=== PATIENT | male | born 1950 | race Caucasian/White ===

== ENCOUNTER → 2016-07-16 | Outpatient (CLI) | payer MEDICARE, BC ==
[~2016-07-16] MED LIST: ALLO300T OR; BABY81CH OR; BISO10TA2 OR; COLA100C2 OR; DIET; KEFL500C OR; LEVO75TA2 OR; LOVAZA; MULTIVIT; OMEP20TA7 OR; SOTOLOL OR; [UNRECOGNIZED DRUG - OTHER]
[2016-07-16 11:03] LABS: INR 2.55
== END ==
LOC: M LAB 10:22
PROVIDERS: ATTEND Internal Medicine Interventional Cardiology
DX: I48.0 Paroxysmal atrial fibrillation (principal)

== ENCOUNTER → 2016-08-13 | Outpatient (CLI) | payer MEDICARE, BC ==
[2016-08-13 13:42] LABS: INR 2.32
== END ==
LOC: M LAB 12:53
PROVIDERS: ATTEND Internal Medicine Interventional Cardiology
DX: I48.0 Paroxysmal atrial fibrillation (principal); Z51.81 Encounter for therapeutic drug level monitoring; Z79.01 Long term (current) use of anticoagulants

== ENCOUNTER → 2016-09-04 | Outpatient (REF) | payer MEDICARE, BC ==
[2016-09-04 13:15] LABS: PERCENT SATURATION 31.6 % (19.7-37.4)
[2016-09-04 14:06] LABS: INR 2.36
== END ==
LOC: M LAB REF 11:53
PROVIDERS: ATTEND Family Medicine
DX: K74.0 Hepatic fibrosis (principal); D64.9 Anemia, unspecified

== ENCOUNTER → 2016-09-20 | Outpatient (CLI) | payer MEDICARE, BC ==
--- NOTE | 2016-09-20 09:58 | REP ---
LIVER ULTRASOUND: 09/20/2016. Clinical history: Anemia, chronic liver disease, elevated LFTs, splenomegaly. Comparison: CT abdomen pelvis 10/20/2015, ultrasound 10/19/2014. Findings: Sonographic evaluation of the liver shows diffuse coarse echotexture throughout similar to previous studies. There is no discrete mass identified. The liver is enlarged measuring at least 19.5 cm in the midclavicular line. Main portal vein is increased in diameter at 2.3 cm. Common duct is 6.6 mm without a filling defect. The gallbladder measures at 10.2 x 4.6 x 5.2 cm. It has a wall thickness of 3 mm. No pericholecystic fluid, stones, sludge or mass. No echogenic stone or shadowing. The pancreas is limited in evaluation due to gas shadowing. Those segments seen were unremarkable. There is no ascites in the upper abdomen. The right kidney is 13.1 x 5.9 x 5.7 cm and is without hydronephrosis. Color images show a prominent recanalized umbilical vein consistent with chronic liver disease and cirrhosis. Slightly lobulated liver margins are noted particularly in the left lobe. There are no other findings. Impression: 1. Hepatomegaly with diffuse coarsened echotexture of the liver, somewhat lobulated margins, recanalization of the umbilical vein and a large main portal vein with diameter 2.3 cm. No generalized ascites. 2. Gallbladder mildly distended but without stone, mass or sludge. Wall thickness 3 mm is borderline but no pericholecystic fluid. 3. Visualized portions of pancreas intact but the gas shadowing obscures it. 4. Right kidney shows no hydronephrosis or mass. Cortical echogenicity is normal. Signed by Kahlil Faria MD 09/20/2016 10:47 A
== END ==
LOC: M RAD 08:47
PROVIDERS: ATTEND Internal Medicine Gastroenterology
DX: K74.0 Hepatic fibrosis (principal)

== ENCOUNTER → 2016-09-27 | Outpatient (CLI) | payer MEDICARE, BC ==
[2016-09-27 11:31] LABS: INR 2.94
== END ==
LOC: M LAB 10:41
PROVIDERS: ATTEND Internal Medicine Interventional Cardiology
DX: I48.0 Paroxysmal atrial fibrillation (principal)

== ENCOUNTER → 2016-10-25 | Outpatient (CLI) | payer MEDICARE, BC ==
[2016-10-25 11:11] LABS: INR 2.97
== END ==
LOC: M LAB 10:30
PROVIDERS: ATTEND Internal Medicine Interventional Cardiology
DX: I48.0 Paroxysmal atrial fibrillation (principal)

== ENCOUNTER 2016-11-11 08:27 | Emergency (ER) | payer MEDICARE, BC ==
[~2016-11-11] VITALS: Ht 188 cm; Wt 124.7 kg
[2016-11-11] MEDS ORDERED: WARF-23 PO (08:47)
[2016-11-11] MEDS ORDERED: OMEG1CAP4 PO (08:47)
[2016-11-11] MEDS ORDERED: LEVO125T3 PO (08:47)
[2016-11-11] MEDS ORDERED: METF1000 PO (08:47)
[2016-11-11 09:30] LABS: BASO % 0.6 % (0.0-1.0); EOS # 0.1 K/mm3 (0.0-0.50); EOS % 2.3 % (0.0-3.0); LARGE UNSTAINED CELL # 0.1 K/mm3 (0.0-0.4); LARGE UNSTAINED CELL % 2.6 % (0.0-4.0); LYMPH # 0.5 K/mm3 (1.5-4.5); MEAN CORPUSCULAR HEMOGLOBIN 28.5 pg (27.0-33.0); MEAN CORPUSCULAR HGB CONC 31.8 g/dl (32.0-36.5); MEAN CORPUSCULAR VOLUME 89.4 fl (80.0-96.0); MONO # 0.2 K/mm3 (0.0-0.8); MONO % 7.2 % (0.0-5.0); NEUTROPHILS # 2.4 K/mm3 (1.8-7.7); NEUTROPHILS % 72.4 % (36.0-66.0); PLATELET COUNT, AUTOMATED 100 k/mm3 (150-450); RED CELL DISTRIBUTION WIDTH 19.9 % (11.5-14.5); WHITE BLOOD COUNT 3.3 K/mm3 (4.0-10.0)
[2016-11-11 09:32] LABS: INR 3.17
[2016-11-11 09:54] LABS: ALBUMIN 3.4 GM/DL (3.2-5.2); ALBUMIN/GLOBULIN RATIO 0.92 (1.00-1.93); ALKALINE PHOSPHATASE 69 U/L (45-117); ALT/SGPT 44 U/L (12-78); ANION GAP 7 MEQ/L (8-16); AST/SGOT 62 U/L (15-37); BILIRUBIN,DIRECT 0.5 MG/DL (0.0-0.2); BILIRUBIN,TOTAL 1.2 MG/DL (0.2-1.0); BLOOD UREA NITROGEN 17 MG/DL (7-18); CALCIUM LEVEL 8.5 MG/DL (8.8-10.2); CARBON DIOXIDE LEVEL 27 MEQ/L (21-32); CHLORIDE LEVEL 108 MEQ/L (98-107); CREATININE FOR GFR 0.74 MG/DL (0.70-1.30); GLOMERULAR FILTRATION RATE > 60.0 (>49); GLUCOSE, FASTING 118 MG/DL (80-110); POTASSIUM SERUM 4.1 MEQ/L (3.5-5.1); SODIUM LEVEL 142 MEQ/L (136-145); TOTAL PROTEIN 7.1 GM/DL (6.4-8.2)
[2016-11-11] MEDS ORDERED: ASPIRIN 325 MG TAB PO ONE (11:45)
--- NOTE | 2016-11-11 12:09 | REP ---
CHEST, TWO VIEWS: HISTORY: Dyspnea. COMPARISON: 07/22/2015 Dual chamber bipolar pacemaker device, status quo. Cardiomegaly, status quo. Lung singh clear. Pleural angles are sharp. No change in the osseous structures. IMPRESSION: Chronic changes as described above without evidence of acute cardiopulmonary disease. Signed by Luis A Sutherland DO 11/11/2016 01:32 P
--- NOTE | 2016-11-11 14:50 | ECGEPIP ---
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
--- NOTE | 2016-11-11 14:51 | ECGEPIP ---
Stationary ECG Study 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
[2016-11-11] MEDS ORDERED: VALA1TAB PO (15:32)
[2016-11-11 15:46] VITALS: BP 131/74
== END 2016-11-11 16:05 | disposition home or self-care (01) ==
LOC: M ED 09:42
DX: R07.9 Chest pain, unspecified (principal); R06.02 Shortness of breath; B02.9 Zoster without complications; I51.7 Cardiomegaly; I25.10 Atherosclerotic heart disease of native coronary artery without angina pectoris; I25.2 Old myocardial infarction; Z87.442 Personal history of urinary calculi; Z95.0 Presence of cardiac pacemaker; Z95.5 Presence of coronary angioplasty implant and graft; Z79.01 Long term (current) use of anticoagulants; Z79.899 Other long term (current) drug therapy; Z79.82 Long term (current) use of aspirin; Z79.84 Long term (current) use of oral hypoglycemic drugs; Z91.041 Radiographic dye allergy status; Z87.891 Personal history of nicotine dependence

== ENCOUNTER → 2016-11-23 | Outpatient (CLI) | payer MEDICARE, BC ==
[~2016-11-23] MED LIST changes: +LEVO125T3 PO; +METF1000 PO; +OMEG1CAP4 PO; +VALA1TAB PO; +WARF-23 PO
[2016-11-23 13:49] LABS: INR 2.61
== END ==
LOC: M LAB 12:53
PROVIDERS: ATTEND Internal Medicine Interventional Cardiology
DX: I48.0 Paroxysmal atrial fibrillation (principal)

== ENCOUNTER → 2016-12-24 | Outpatient (CLI) | payer MEDICARE, BC ==
[2016-12-24 10:52] LABS: INR 2.56
== END ==
LOC: M LAB 09:34
PROVIDERS: ATTEND Internal Medicine Interventional Cardiology
DX: I48.91 Unspecified atrial fibrillation (principal)

== ENCOUNTER → 2017-01-24 | Outpatient (CLI) | payer MEDICARE, BC ==
[~2017-01-24] MED LIST changes: +CLEO300C2 PO; -LEVO125T3 PO; +LEVO125T4 PO; -METF1000 PO; +METF10004 PO; +TYLETAB14 PO; -VALA1TAB PO; +VALA1TAB2 PO
[2017-01-24 11:38] LABS: INR 2.52
== END ==
LOC: M LAB 10:34
PROVIDERS: ATTEND Internal Medicine Interventional Cardiology
DX: I48.91 Unspecified atrial fibrillation (principal)

== ENCOUNTER → 2017-01-28 | Outpatient (REF) | payer MEDICARE, BC | LOC: M LAB REF 14:07 | PROVIDERS: ATTEND Family Medicine | DX: Z87.442 Personal history of urinary calculi (principal) ==

== ENCOUNTER → 2017-01-30 | Outpatient (REF) | payer MEDICARE, BC | LOC: M LAB REF 13:25 | PROVIDERS: ATTEND Family Medicine | DX: R06.02 Shortness of breath (principal) ==

== ENCOUNTER → 2017-02-01 | Outpatient (CLI) | payer MEDICARE, BC ==
--- NOTE | 2017-02-01 11:39 | REP ---
CHEST, TWO VIEWS: Two views of the chest are performed and compared to prior study of 11/11/2016. There is again mild cardiomegaly. There is no acute infiltrate. There is mild elevation of the left hemidiaphragm unchanged. There is mild calcification of the thoracic aorta. The mediastinal silhouette is unchanged. Left dual lead pacemaker noted. There are degenerative changes of the spine. IMPRESSION: Mild cardiomegaly. No acute infiltrate. Signed by Titi Ledbetter MD 02/01/2017 03:28 P
== END ==
LOC: M RAD 10:12
PROVIDERS: ATTEND Family Medicine
DX: R06.02 Shortness of breath (principal)

== ENCOUNTER → 2017-02-22 | Outpatient (CLI) | payer MEDICARE, BC ==
[2017-02-22 11:15] LABS: INR 2.83
== END ==
LOC: M LAB 10:34
PROVIDERS: ATTEND Internal Medicine Interventional Cardiology
DX: I48.91 Unspecified atrial fibrillation (principal)

== ENCOUNTER → 2017-03-18 | Outpatient (CLI) | payer MEDICARE, BC ==
[2017-03-18 10:30] LABS: ALBUMIN 3.6 GM/DL (3.2-5.2); ALBUMIN/GLOBULIN RATIO 1.06 (1.00-1.93); ALKALINE PHOSPHATASE 71 U/L (45-117); ALT/SGPT 36 U/L (12-78); ANION GAP 5 MEQ/L (8-16); AST/SGOT 55 U/L (15-37); BILIRUBIN,TOTAL 1.1 MG/DL (0.2-1.0); BLOOD UREA NITROGEN 18 MG/DL (7-18); CALCIUM LEVEL 8.7 MG/DL (8.8-10.2); CARBON DIOXIDE LEVEL 29 MEQ/L (21-32); CHLORIDE LEVEL 108 MEQ/L (98-107); CREATININE FOR GFR 0.62 MG/DL (0.70-1.30); GLOMERULAR FILTRATION RATE > 60.0 (>49); GLUCOSE, FASTING 101 MG/DL (80-110); SODIUM LEVEL 142 MEQ/L (136-145)
[2017-03-18 10:39] LABS: MEAN CORPUSCULAR HEMOGLOBIN 28.8 pg (27.0-33.0); MEAN CORPUSCULAR HGB CONC 32.5 g/dl (32.0-36.5); MEAN CORPUSCULAR VOLUME 88.6 fl (80.0-96.0); RED CELL DISTRIBUTION WIDTH 19.3 % (11.5-14.5); WHITE BLOOD COUNT 3.9 K/mm3 (4.0-10.0)
[2017-03-18 10:45] LABS: INR 3.04
== END ==
LOC: M LAB 09:15
PROVIDERS: ATTEND Internal Medicine Gastroenterology
DX: K74.0 Hepatic fibrosis (principal)

== ENCOUNTER 2017-03-23 13:09 | Emergency (ER) | payer MEDICARE, BC ==
[~2017-03-23] VITALS: Ht 182.9 cm; Wt 72.7 kg
[~2017-03-23 13:09] MED LIST changes: -CLEO300C2 PO; -TYLETAB14 PO
[2017-03-23 13:10] VITALS: BP 137/89
[2017-03-23] MEDS ORDERED: CLEO300C2 PO (14:36)
[2017-03-23] MEDS ORDERED: TYLETAB14 PO (14:36)
== END 2017-03-23 14:44 | disposition home or self-care (01) ==
LOC: M ED 13:09
DX: L03.317 Cellulitis of buttock (principal); I25.10 Atherosclerotic heart disease of native coronary artery without angina pectoris; I50.9 Heart failure, unspecified; E11.9 Type 2 diabetes mellitus without complications; E07.9 Disorder of thyroid, unspecified; E66.9 Obesity, unspecified; I25.2 Old myocardial infarction; Z79.899 Other long term (current) drug therapy; Z79.84 Long term (current) use of oral hypoglycemic drugs; Z79.01 Long term (current) use of anticoagulants; Z79.82 Long term (current) use of aspirin; Z91.041 Radiographic dye allergy status; Z87.891 Personal history of nicotine dependence

== ENCOUNTER → 2017-04-03 | Outpatient (CLI) | payer MEDICARE, BC ==
[~2017-04-03] MED LIST changes: +CLEO300C2 PO; +TYLETAB14 PO
--- NOTE | 2017-04-03 09:49 | REP ---
RIGHT UPPER QUADRANT ULTRASOUND: Real-time sonographic evaluation of the right upper quadrant performed and compared to prior study of 09/20/2016. The gallbladder demonstrates no evidence of intraluminal sludge or calculi and no wall thickening. Minimal free fluid is seen adjacent to the gallbladder. There is no intrahepatic or extrahepatic biliary dilatation, common bile duct measuring 3 mm in diameter. Liver is upper limits of normal in size at 15 cm in length at the midclavicular line. There is diffuse heterogeneous echotexture in the liver without evidence of a mass. The main portal vein is dilated up to 21 mm with a velocity of 40.6 cm/s with duplex Doppler evaluation. Umbilical vein is recanalized. Findings are consistent with portal hypertension then cirrhosis. Visualized pancreas is grossly unremarkable but not optimally seen due to overlying bowel gas. Right kidney demonstrates no hydronephrosis or nephrolithiasis with normal size at 13.6 cm in length. IMPRESSION: Tiny amount of free fluid adjacent to the gallbladder. No gallstones. No biliary dilatation. Heterogeneous echotexture of the liver without a definite mass compatible with cirrhosis. Dilated portal vein and recanalized umbilical vein consistent with portal hypertension. Signed by Titi Ledbetter MD 04/03/2017 05:02 P
== END ==
LOC: M RAD 08:35
PROVIDERS: ATTEND Internal Medicine Gastroenterology
DX: R74.8 Abnormal levels of other serum enzymes (principal)

== ENCOUNTER → 2017-04-15 | Outpatient (CLI) | payer MEDICARE, BC ==
[2017-04-15 10:03] LABS: INR 2.65
== END ==
LOC: M LAB 09:03
PROVIDERS: ATTEND Internal Medicine Interventional Cardiology
DX: I48.91 Unspecified atrial fibrillation (principal)

== ENCOUNTER → 2017-06-10 | Outpatient (CLI) | payer MEDICARE, BC ==
[2017-06-10 12:55] LABS: INR 2.49
== END ==
LOC: M LAB 12:12
PROVIDERS: ATTEND Internal Medicine Interventional Cardiology
DX: I48.91 Unspecified atrial fibrillation (principal)

== ENCOUNTER → 2017-06-11 | Outpatient (CLI) | payer MEDICARE, BC ==
[2017-06-12 14:15] LABS: PSA TOTAL 0.4 ng/mL (0.0-4.0)
== END ==
LOC: M LAB 13:33
PROVIDERS: ATTEND Urology
DX: Z12.5 Encounter for screening for malignant neoplasm of prostate (principal)

== ENCOUNTER → 2017-06-26 | Outpatient (CLI) | payer MEDICARE, BC ==
--- NOTE | 2017-06-26 20:42 | REP ---
RENAL AND BLADDER ULTRASOUND: Real-time sonographic evaluation of the kidneys performed. The kidneys appear normal in size and echotexture, right kidney measuring 12.9 x 7.0 x 5.9 cm and left kidney 12.3 x 6.1 x 6.4 cm. There is no hydronephrosis bilaterally. Tiny somewhat linear echogenicities in the kidneys bilaterally suggests intrarenal vascular calcifications. There is a 1 cm cyst in the lower pole of the left kidney. No other renal abnormalities are seen. Urinary bladder is mildly distended with no mass or calculus. IMPRESSION: No hydronephrosis. Cyst lower pole left kidney 1 cm in diameter. Tiny echogenicities in the kidneys bilaterally appears somewhat linear and suggests vascular calcifications. Signed by Titi Ledbetter MD 06/27/2017 08:31 P
== END ==
LOC: M RAD 13:14
PROVIDERS: ATTEND Urology
DX: N20.0 Calculus of kidney (principal)

== ENCOUNTER → 2017-07-15 | Outpatient (CLI) | payer MEDICARE, BC ==
[2017-07-15 10:06] LABS: INR 2.65; PROTHROMBIN TIME 29.4 SECONDS (12.4-14.5)
== END ==
LOC: M LAB 09:19
DX: I48.91 Unspecified atrial fibrillation (principal)
CPT/HCPCS: 85610

== ENCOUNTER → 2017-08-05 | Outpatient (CLI) | payer MEDICARE, BC ==
[2017-08-05 10:52] LABS: INR 2.68; PROTHROMBIN TIME 29.7 SECONDS (12.4-14.5)
== END ==
LOC: M LAB 10:04
DX: I48.91 Unspecified atrial fibrillation (principal)
CPT/HCPCS: 85610

== ENCOUNTER → 2017-08-09 | Outpatient (REF) | payer MEDICARE, BC ==
[2017-08-09 19:09] LABS: URIC ACID 3.5 MG/DL (3.5-7.2)
== END ==
LOC: M LAB REF 17:46
DX: Z87.442 Personal history of urinary calculi (principal)
CPT/HCPCS: 84550

== ENCOUNTER → 2017-09-02 | Outpatient (CLI) | payer MEDICARE, BC ==
[2017-09-02 08:45] LABS: INR 2.89; PROTHROMBIN TIME 31.5 SECONDS (12.4-14.5)
== END ==
LOC: M LAB 07:57
DX: I48.91 Unspecified atrial fibrillation (principal)
CPT/HCPCS: 85610

== ENCOUNTER → 2017-09-17 | Outpatient (REF) | payer MEDICARE, BC ==
[2017-09-17 15:03] LABS: URIC ACID 3.4 MG/DL (3.5-7.2)
[2017-09-17 15:21] LABS: VITAMIN B12 LEVEL 771 PG/ML
[2017-09-17 15:22] LABS: FOLATE 17.3 NG/ML; RETIC HEMOGLOBIN EQUIVALENT 30.9 pg (24-36); RETICULOCYTE # 63.8 10^9/L (17-77); RETICULOCYTE % 1.9 % (0.5-1.5)
[2017-09-17 15:29] LABS: REASON FOR REVIEW PLATELET MORPHOLOGY; SLIDE REVIEW Report; SOURCE PERIPHERAL SMEAR
== END ==
LOC: M LAB REF 12:59
DX: D61.818 Other pancytopenia (principal)
CPT/HCPCS: 82746

== ENCOUNTER → 2017-09-18 | Outpatient (CLI) | payer MEDICARE, BC ==
[2017-09-18 09:45] LABS: INR 1.42; PROTHROMBIN TIME 17.7 SECONDS (12.4-14.5)
== END ==
LOC: M LAB 08:36
DX: I50.20 Unspecified systolic (congestive) heart failure (principal)
CPT/HCPCS: 85610

== ENCOUNTER → 2017-09-24 | Outpatient (CLI) | payer MEDICARE, BC | LOC: M RAD 07:08 | DX: F17.210 Nicotine dependence, cigarettes, uncomplicated (principal) | CPT/HCPCS: 76700 ==

== ENCOUNTER → 2017-09-24 | Outpatient (CLI) | payer MEDICARE, BC | LOC: M RAD 07:04 | DX: R10.12 Left upper quadrant pain (principal) ==

== ENCOUNTER → 2017-09-25 | Outpatient (REF) | payer MEDICARE, BC ==
[2017-09-25 13:59] LABS: FOLATE 19.9 NG/ML
[2017-09-25 14:01] LABS: ESTIMATED AVERAGE GLUCOSE 91 MG/DL (60-110); HEMOGLOBIN A1c 4.8 %; TOTAL PROTEIN 7.6 GM/DL (6.4-8.2)
[2017-09-25 14:01] LABS: CPK CREATINE PHOSPHOKINASE 36 U/L (39-308)
[2017-09-25 14:07] LABS: VITAMIN B12 LEVEL 789 PG/ML
[2017-09-26 11:24] LABS: ALBUMIN 4.16 GM/DL (3.29-5.55); ALBUMIN % 54.8 % (55.8-66.1); ALPHA-1-GLOBULIN % 3.8 % (2.9-4.9); ALPHA-1-GLOBULINS 0.29 GM/DL (0.17-0.41); ALPHA-2-GLOBULINS 0.63 GM/DL (0.42-0.99); ALPHA-2-GLOBULINS % 8.3 % (7.1-11.8); BETA-1-GLOBULINS 0.44 GM/DL (0.28-0.60); BETA-1-GLOBULINS % 5.8 % (4.7-7.2); BETA-2-GLOBULINS 0.41 GM/DL (0.19-0.55); BETA-2-GLOBULINS % 5.4 % (3.2-6.5); GAMMA GLOBULIN % 21.9 % (11.1-18.8); GAMMA GLOBULINS 1.66 GM/DL (0.65-1.58)
[2017-10-02 00:07] LABS: ACETYLCHOLINE RCPTOR BINDING A 0.06 nmol/L (0.00-0.24)
[2017-10-02 00:07] LABS: ALDOLASE 4.5 U/L (3.3-10.3); CERULOPLASMIN 31.9 mg/dL (16.0-31.0); COPPER PLASMA 110 ug/dL (72-166); LEAD BLOOD ADULT <1 ug/dL (0-19); MERCURY LEVEL 1.5 ug/L (0.0-14.9); STRIATIONAL ANTIBODIES Negative (Neg:<1:40)
== END ==
LOC: M LABNEURO 10:30
DX: E11.40 Type 2 diabetes mellitus with diabetic neuropathy, unspecified (principal); G72.9 Myopathy, unspecified; G70.00 Myasthenia gravis without (acute) exacerbation; T56.4X2S Toxic effect of copper and its compounds, intentional self-harm, sequela; T56.0X2S Toxic effect of lead and its compounds, intentional self-harm, sequela; T56.1X2S Toxic effect of mercury and its compounds, intentional self-harm, sequela
CPT/HCPCS: 82525

== ENCOUNTER → 2017-09-26 | Outpatient (CLI) | payer MEDICARE, BC ==
[2017-09-26 15:39] LABS: HEMATOCRIT 30.8 % (42.0-52.0); HEMOGLOBIN 9.7 g/dl (14.0-18.0); MEAN CORPUSCULAR HEMOGLOBIN 27.3 pg (27.0-33.0); MEAN CORPUSCULAR HGB CONC 31.5 g/dl (32.0-36.5); MEAN CORPUSCULAR VOLUME 86.8 fl (80.0-96.0); PLATELET COUNT, AUTOMATED 113 10^3/uL (150-450); RED BLOOD COUNT 3.55 10^6/uL (4.30-6.10); RED CELL DISTRIBUTION WIDTH 20.7 % (11.5-14.5); WHITE BLOOD COUNT 3.4 10^3/uL (4.0-10.0)
[2017-09-26 15:41] LABS: POSITIVE MORPH POS FLAG; SUSPECT SAMPLE POS FLAG
[2017-09-26 15:59] LABS: INR 2.54; PROTHROMBIN TIME 28.4 SECONDS (12.4-14.5)
[2017-09-26 16:08] LABS: ALBUMIN 3.6 GM/DL (3.2-5.2); ALBUMIN/GLOBULIN RATIO 0.92 (1.00-1.93); ALKALINE PHOSPHATASE 76 U/L (45-117); ALT/SGPT 39 U/L (12-78); ANION GAP 5 MEQ/L (8-16); AST/SGOT 48 U/L (7-37); BLOOD UREA NITROGEN 16 MG/DL (7-18); CALCIUM LEVEL 8.8 MG/DL (8.8-10.2); CARBON DIOXIDE LEVEL 29 MEQ/L (21-32); CHLORIDE LEVEL 111 MEQ/L (98-107); CREATININE FOR GFR 0.64 MG/DL (0.70-1.30); GLOMERULAR FILTRATION RATE > 60.0 (>49); GLUCOSE, FASTING 86 MG/DL (70-100); SODIUM LEVEL 145 MEQ/L (136-145); TOTAL PROTEIN 7.5 GM/DL (6.4-8.2)
[2017-09-27 09:42] LABS: ALPHA FETOPROTEIN TUMOR QUANT 5.2 NG/ML (<8.1)
== END ==
LOC: M LAB 14:37
DX: K74.0 Hepatic fibrosis (principal); K75.89 Other specified inflammatory liver diseases; R94.5 Abnormal results of liver function studies; K44.9 Diaphragmatic hernia without obstruction or gangrene; K21.9 Gastro-esophageal reflux disease without esophagitis; I85.00 Esophageal varices without bleeding; K57.30 Diverticulosis of large intestine without perforation or abscess without bleeding; Z86.010 Personal history of colon polyps; L40.9 Psoriasis, unspecified
CPT/HCPCS: 80053

== ENCOUNTER → 2017-09-30 | Outpatient (CLI) | payer MEDICARE, BC ==
[2017-09-30 10:57] LABS: INR 2.82; PROTHROMBIN TIME 30.9 SECONDS (12.4-14.5)
== END ==
LOC: M LAB 10:08
DX: I48.91 Unspecified atrial fibrillation (principal)
CPT/HCPCS: 85610

== ENCOUNTER → 2017-10-03 | Outpatient (CLI) | payer MEDICARE, BC | LOC: M RAD 12:54 | DX: K74.0 Hepatic fibrosis (principal); I85.00 Esophageal varices without bleeding; D68.9 Coagulation defect, unspecified; D64.9 Anemia, unspecified; R16.0 Hepatomegaly, not elsewhere classified; Z53.20 Procedure and treatment not carried out because of patient's decision for unspecified reasons ==

== ENCOUNTER → 2017-10-04 | Outpatient (CLI) | payer MEDICARE, BC ==
[~2017-10-04] MED LIST changes: -ALLO300T OR; -BABY81CH OR; -BISO10TA2 OR; -CLEO300C2 PO; -COLA100C2 OR; -DIET; +ISOVUE-370 76% 100ML VIAL (Q9967) As Ordered; -KEFL500C OR; -LEVO125T4 PO; -LEVO75TA2 OR; -LOVAZA; -METF10004 PO; -MULTIVIT; -OMEG1CAP4 PO; -OMEP20TA7 OR; -SOTOLOL OR; -TYLETAB14 PO; -VALA1TAB2 PO; -WARF-23 PO; -[UNRECOGNIZED DRUG - OTHER]
== END ==
LOC: M RAD 08:32
DX: I31.3 Pericardial effusion (noninflammatory) (principal); K74.60 Unspecified cirrhosis of liver; K74.0 Hepatic fibrosis; I85.00 Esophageal varices without bleeding; D68.9 Coagulation defect, unspecified; D64.9 Anemia, unspecified; R16.0 Hepatomegaly, not elsewhere classified
CPT/HCPCS: Q9967

== ENCOUNTER → 2017-10-21 | Outpatient (REF) | payer MEDICARE, BC | LOC: M LAB REF 13:06 | DX: D47.2 Monoclonal gammopathy (principal) | CPT/HCPCS: 88300 ==

== ENCOUNTER → 2017-10-31 | Outpatient (CLI) | payer MEDICARE, BC ==
[2017-10-31 10:36] LABS: PROTHROMBIN TIME 16.5 SECONDS (12.4-14.5)
[2017-10-31 10:37] LABS: PARTIAL THROMBOPLASTIN TIME 43.3 SECONDS (26.8-37.9)
[2017-10-31 11:36] LABS: ALBUMIN 3.5 GM/DL (3.2-5.2); ALBUMIN/GLOBULIN RATIO 0.92 (1.00-1.93); ALKALINE PHOSPHATASE 70 U/L (45-117); ALT/SGPT 40 U/L (12-78); ANION GAP 3 MEQ/L (8-16); AST/SGOT 59 U/L (7-37); BILIRUBIN,TOTAL 1.3 MG/DL (0.2-1.0); BLOOD UREA NITROGEN 19 MG/DL (7-18); CALCIUM LEVEL 8.7 MG/DL (8.8-10.2); CARBON DIOXIDE LEVEL 29 MEQ/L (21-32); CHLORIDE LEVEL 110 MEQ/L (98-107); CREATININE FOR GFR 0.74 MG/DL (0.70-1.30); GLOMERULAR FILTRATION RATE > 60.0 (>49); GLUCOSE, FASTING 115 MG/DL (70-100); POTASSIUM SERUM 3.9 MEQ/L (3.5-5.1); SODIUM LEVEL 142 MEQ/L (136-145); TOTAL PROTEIN 7.3 GM/DL (6.4-8.2)
== END ==
LOC: M LAB 09:56
DX: K74.0 Hepatic fibrosis (principal); R16.0 Hepatomegaly, not elsewhere classified
CPT/HCPCS: 80053

== ENCOUNTER → 2017-11-01 | Outpatient (CLI) | payer MEDICARE, BC ==
[~2017-11-01] MED LIST changes: -ISOVUE-370 76% 100ML VIAL (Q9967) As Ordered; +LIDOCAINE 1% MDV 20ML VIAL As Ordered
== END ==
LOC: M RADPRO 10:50
DX: R16.0 Hepatomegaly, not elsewhere classified (principal); K74.0 Hepatic fibrosis; Z95.5 Presence of coronary angioplasty implant and graft; Z87.442 Personal history of urinary calculi; Z88.3 Allergy status to other anti-infective agents; Z91.041 Radiographic dye allergy status; Z79.82 Long term (current) use of aspirin; Z79.899 Other long term (current) drug therapy; Z79.01 Long term (current) use of anticoagulants; Z79.84 Long term (current) use of oral hypoglycemic drugs
CPT/HCPCS: 47000

== ENCOUNTER → 2017-11-08 | Outpatient (CLI) | payer MEDICARE, BC ==
[2017-11-08 11:07] LABS: INR 2.43; PROTHROMBIN TIME 27.4 SECONDS (12.4-14.5)
== END ==
LOC: M LAB 10:10
DX: I48.91 Unspecified atrial fibrillation (principal)
CPT/HCPCS: 85610

== ENCOUNTER → 2017-11-13 | Outpatient (REF) | payer MEDICARE, BC ==
[2017-11-15 08:10] LABS: LDL DIRECT 23 mg/dL (0-99)
== END ==
LOC: M LAB REF 16:32
DX: E78.5 Hyperlipidemia, unspecified (principal)
CPT/HCPCS: 83721

== ENCOUNTER → 2017-12-04 | Outpatient (CLI) | payer MEDICARE, BC ==
[2017-12-04 11:07] LABS: INR 3.47; PROTHROMBIN TIME 36.6 SECONDS (12.4-14.5)
== END ==
LOC: M LAB 09:48
DX: I48.91 Unspecified atrial fibrillation (principal)
CPT/HCPCS: 85610

== ENCOUNTER → 2017-12-16 | Outpatient (CLI) | payer MEDICARE, BC ==
[2017-12-16 10:52] LABS: INR 3.07; PROTHROMBIN TIME 33.1 SECONDS (12.4-14.5)
== END ==
LOC: M LAB 10:18
DX: I48.91 Unspecified atrial fibrillation (principal)
CPT/HCPCS: 85610

== ENCOUNTER → 2017-12-18 | Outpatient (CLI) | payer MEDICARE, BC ==
[2017-12-18 10:51] LABS: MAGNESIUM LEVEL 1.8 MG/DL (1.8-2.4)
[2017-12-18 11:03] LABS: TOTAL 25(OH) VITAMIN D 33.5 NG/ML (30.0-100.0)
[2017-12-20 12:08] LABS: ALPHA FETOPROTEIN TUMOR QUANT 6.3 NG/ML (<8.1)
== END ==
LOC: M LAB 10:08
DX: R16.0 Hepatomegaly, not elsewhere classified (principal); D68.9 Coagulation defect, unspecified; D64.9 Anemia, unspecified; I85.00 Esophageal varices without bleeding; K74.0 Hepatic fibrosis; E55.9 Vitamin D deficiency, unspecified
CPT/HCPCS: 83735

== ENCOUNTER → 2017-12-19 | Outpatient (CLI) | payer MEDICARE, BC ==
[2017-12-19 10:35] LABS: PROSTATIC SPECIFIC AG MONITOR 0.38 NG/ML (< 4.0)
== END ==
LOC: M LAB 09:45
DX: Z12.5 Encounter for screening for malignant neoplasm of prostate (principal)
CPT/HCPCS: 84153

== ENCOUNTER → 2017-12-26 | Outpatient (CLI) | payer MEDICARE, BC ==
[2017-12-26 09:20] LABS: PROTHROMBIN TIME 33.3 SECONDS (12.4-14.5)
== END ==
LOC: M LAB 08:39
DX: I48.91 Unspecified atrial fibrillation (principal)
CPT/HCPCS: 85610

== ENCOUNTER → 2017-12-30 | Outpatient (REF) | payer MEDICARE, BC ==
[2017-12-30 13:08] LABS: URIC ACID 3.6 MG/DL (3.5-7.2)
== END ==
LOC: M LAB REF 12:34
DX: Z87.442 Personal history of urinary calculi (principal)
CPT/HCPCS: 84550

== ENCOUNTER → 2018-01-06 | Outpatient (CLI) | payer MEDICARE, BC ==
[2018-01-06 10:57] LABS: INR 4.83; PROTHROMBIN TIME 46.4 SECONDS (12.1-14.4)
== END ==
LOC: M LAB 10:30
DX: I48.91 Unspecified atrial fibrillation (principal)
CPT/HCPCS: 85610

== ENCOUNTER → 2018-01-10 | Outpatient (CLI) | payer MEDICARE, BC ==
[2018-01-10 08:59] LABS: INR 1.72; PROTHROMBIN TIME 20.5 SECONDS (12.1-14.4)
== END ==
LOC: M LAB 08:22
DX: I48.91 Unspecified atrial fibrillation (principal)
CPT/HCPCS: 85610

== ENCOUNTER → 2018-01-20 | Outpatient (CLI) | payer MEDICARE, BC ==
[2018-01-20 09:24] LABS: INR 3.53; PROTHROMBIN TIME 36.2 SECONDS (12.1-14.4)
== END ==
LOC: M LAB 08:55
DX: I48.91 Unspecified atrial fibrillation (principal)
CPT/HCPCS: 85610

== ENCOUNTER → 2018-01-27 | Outpatient (CLI) | payer MEDICARE, BC ==
[2018-01-27 09:55] LABS: INR 3.12; PROTHROMBIN TIME 32.8 SECONDS (12.1-14.4)
== END ==
LOC: M LAB 09:13
DX: I48.91 Unspecified atrial fibrillation (principal)
CPT/HCPCS: 85610

== ENCOUNTER → 2018-02-12 | Outpatient (CLI) | payer MEDICARE, BC ==
[2018-02-12 11:02] LABS: INR 4.08; PROTHROMBIN TIME 40.6 SECONDS (12.1-14.4)
== END ==
LOC: M LAB 10:08
DX: I48.91 Unspecified atrial fibrillation (principal); Z79.01 Long term (current) use of anticoagulants
CPT/HCPCS: 85610

== ENCOUNTER → 2018-02-19 | Outpatient (CLI) | payer MEDICARE, BC ==
[2018-02-19 09:32] LABS: INR 2.49; PROTHROMBIN TIME 27.4 SECONDS (12.1-14.4)
== END ==
LOC: M LAB 08:43
DX: I48.91 Unspecified atrial fibrillation (principal)
CPT/HCPCS: 85610

== ENCOUNTER → 2018-03-25 | Outpatient (CLI) | payer MEDICARE, BC ==
[2018-03-25 11:04] LABS: HEMATOCRIT 26.7 % (42.0-52.0); HEMOGLOBIN 8.4 g/dl (13.5-17.5); MEAN CORPUSCULAR HEMOGLOBIN 27.7 pg (27.0-33.0); MEAN CORPUSCULAR HGB CONC 31.5 g/dl (32.0-36.5); MEAN CORPUSCULAR VOLUME 88.1 fl (80.0-96.0); RED BLOOD COUNT 3.03 10^6/uL (4.30-6.10); RED CELL DISTRIBUTION WIDTH 21.2 % (11.5-14.5); WHITE BLOOD COUNT 4.8 10^3/uL (4.0-10.0)
[2018-03-25 11:12] LABS: INR 2.22; PROTHROMBIN TIME 25.1 SECONDS (12.1-14.4)
[2018-03-25 11:15] LABS: ALBUMIN 3.7 GM/DL (3.2-5.2); ALBUMIN/GLOBULIN RATIO 1.06 (1.00-1.93); ALKALINE PHOSPHATASE 68 U/L (45-117); ALT/SGPT 28 U/L (12-78); ANION GAP 6 MEQ/L (8-16); AST/SGOT 37 U/L (7-37); BILIRUBIN,TOTAL 1.6 MG/DL (0.2-1.0); BLOOD UREA NITROGEN 16 MG/DL (7-18); CALCIUM LEVEL 8.5 MG/DL (8.8-10.2); CARBON DIOXIDE LEVEL 26 MEQ/L (21-32); CHLORIDE LEVEL 108 MEQ/L (98-107); GLOMERULAR FILTRATION RATE > 60.0 (>49); GLUCOSE, FASTING 91 MG/DL (70-100); POTASSIUM SERUM 4.1 MEQ/L (3.5-5.1); SODIUM LEVEL 140 MEQ/L (136-145); TOTAL PROTEIN 7.2 GM/DL (6.4-8.2)
[2018-03-25 11:22] LABS: IMMATURE PLATELET FRACTION % 11.2 % (0.0-10.9); PLATELET COUNT, AUTOMATED 86 10^3/uL (150-450)
[2018-03-25 11:25] LABS: ALPHA FETOPROTEIN TUMOR QUANT 6.6 NG/ML (<8.1); TOTAL 25(OH) VITAMIN D 51.3 NG/ML (30.0-100.0)
== END ==
LOC: M LAB 10:05
DX: D64.9 Anemia, unspecified (principal); K74.0 Hepatic fibrosis; I85.00 Esophageal varices without bleeding; K21.9 Gastro-esophageal reflux disease without esophagitis; I48.91 Unspecified atrial fibrillation; Z51.81 Encounter for therapeutic drug level monitoring; Z79.01 Long term (current) use of anticoagulants
CPT/HCPCS: 83735

== ENCOUNTER → 2018-03-25 | Outpatient (CLI) | payer MEDICARE, BC ==
[2018-03-25 11:11] LABS: INR 2.25; PROTHROMBIN TIME 25.3 SECONDS (12.1-14.4)
== END ==
LOC: M LAB 09:58
DX: I48.91 Unspecified atrial fibrillation (principal); Z51.81 Encounter for therapeutic drug level monitoring; Z79.01 Long term (current) use of anticoagulants

== ENCOUNTER 2018-03-28 06:45 | Outpatient (CLI) | payer MEDICARE, BC ==
[2018-03-28] MEDS: ACETAMINOPHEN TAB 650MG DOSE (2X325MG) PO (07:24)
[2018-03-28] MEDS: diphenhydrAMINE 25 MG CAP PO (07:25)
[2018-03-28 10:20] LABS: IMMEDIATE SPIN CROSSMATCH 1 2
== END 2018-03-28 12:52 | disposition home or self-care (01) ==
LOC: M INFU 06:45
DX: D64.9 Anemia, unspecified (principal); D75.81 Myelofibrosis; Z91.041 Radiographic dye allergy status
CPT/HCPCS: 36430

== ENCOUNTER → 2018-04-04 | Outpatient (CLI) | payer MEDICARE, BC | LOC: M RAD 08:38 | DX: K74.69 Other cirrhosis of liver (principal) | CPT/HCPCS: 76705 ==

== ENCOUNTER → 2018-04-15 | Outpatient (CLI) | payer MEDICARE, BC ==
[2018-04-15 11:13] LABS: INR 2.27; PROTHROMBIN TIME 25.5 SECONDS (12.1-14.4)
== END ==
LOC: M LAB 10:39
DX: I48.91 Unspecified atrial fibrillation (principal)
CPT/HCPCS: 85610

== ENCOUNTER 2018-04-22 13:22 | Outpatient (CLI) | payer MEDICARE, BC ==
[2018-04-22] MEDS: diphenhydrAMINE INJ 50MG/ML VIAL (J1200) IV (15:19)
[2018-04-22] MEDS: ACETAMINOPHEN TAB 650MG DOSE (2X325MG) PO (15:20)
== END 2018-04-22 21:20 | disposition home or self-care (01) ==
LOC: M OPCLI5PR 13:22 → M MS5PR 14:07 → M OPCLI5PR 21:20
DX: D64.9 Anemia, unspecified (principal); D75.81 Myelofibrosis; Z91.041 Radiographic dye allergy status
CPT/HCPCS: 36430

== ENCOUNTER → 2018-04-22 | Outpatient (CLI) | payer MEDICARE, BC | LOC: M RAD 10:11 | DX: D64.9 Anemia, unspecified (principal); D75.81 Myelofibrosis | CPT/HCPCS: 74176 ==

== ENCOUNTER 2018-05-13 06:50 | Outpatient (CLI) | payer MEDICARE, BC ==
[2018-05-13] MEDS: ACETAMINOPHEN TAB 650MG DOSE (2X325MG) PO (07:09)
[2018-05-13] MEDS: diphenhydrAMINE 25 MG CAP PO (07:09)
== END 2018-05-13 12:10 | disposition home or self-care (01) ==
LOC: M INFU 06:50
DX: D64.9 Anemia, unspecified (principal); D75.81 Myelofibrosis; Z79.899 Other long term (current) drug therapy; Z79.82 Long term (current) use of aspirin; Z91.041 Radiographic dye allergy status
CPT/HCPCS: 36430

== ENCOUNTER → 2018-05-22 | Outpatient (CLI) | payer MEDICARE, BC ==
[2018-05-22 11:17] LABS: INR 1.73; PROTHROMBIN TIME 20.5 SECONDS (12.1-14.4)
== END ==
LOC: M LAB 10:11
DX: I48.91 Unspecified atrial fibrillation (principal)
CPT/HCPCS: 85610

== ENCOUNTER → 2018-06-05 | Outpatient (CLI) | payer MEDICARE, BC ==
[2018-06-05 10:27] LABS: INR 2.02; PROTHROMBIN TIME 23.2 SECONDS (12.1-14.4)
== END ==
LOC: M LAB 09:28
DX: I48.91 Unspecified atrial fibrillation (principal)
CPT/HCPCS: 85610

== ENCOUNTER → 2018-06-19 | Outpatient (CLI) | payer MEDICARE, BC ==
[2018-06-19 11:08] LABS: INR 2.23; PROTHROMBIN TIME 25.1 SECONDS (12.1-14.4)
== END ==
LOC: M LAB 10:15
DX: I48.91 Unspecified atrial fibrillation (principal)
CPT/HCPCS: 85610

== ENCOUNTER → 2018-07-22 | Outpatient (REF) | payer MEDICARE, BC ==
[~2018-07-22] MED LIST changes: +ALLO300T OR; +ALPR1TAB6 PO; +ASPI1TAB PO; +BABY81CH OR; +BISO10TA2 OR; +CLEO300C2 PO; +COLA100C2 OR; +COLA100C5 PO; +DIET; +JAKA10TA PO; +KEFL500C OR; +LEVO125T4 PO; +LEVO75TA2 OR; -LIDOCAINE 1% MDV 20ML VIAL As Ordered; +LOVAZA; +METF10004 PO; +MULTIVIT; +OMEG1CAP4 PO; +OMEP-218 PO; +OMEP20TA7 OR; +SOTOLOL OR; +TYLETAB14 PO; +VALA1TAB2 PO; +VITA2000 PO; +VITA400C35 PO; +VITMTA PO; +WARF-23 PO; +ZYLO300T6 PO; +[UNRECOGNIZED DRUG - OTHER]
== END ==
LOC: M LAB REF 16:38
PROVIDERS: ATTEND Family Medicine
DX: R30.0 Dysuria (principal)

== ENCOUNTER → 2018-08-06 | Outpatient (CLI) | payer MEDICARE, BC | LOC: M RAD 08:30 | PROVIDERS: ATTEND Internal Medicine Medical Oncology | DX: K74.60 Unspecified cirrhosis of liver (principal); D75.81 Myelofibrosis ==

== ENCOUNTER → 2018-08-06 | Outpatient (CLI) | payer MEDICARE, BC ==
--- NOTE | 2018-08-06 09:50 | REP ---
Clinical: Anemia. Cirrhosis. Technique: Real time medina scale and color evaluation using curved array transducer. Findings: The liver demonstrates coarsened heterogeneous echotexture with subtle nodular contour along with prominent recanalized umbilical vein. The main portal vein is dilated to 23 mm diameter and demonstrates normal flow pattern with increased velocity at 37 cm/sec.. Small amount of free fluid identified. These findings are consistent with known cirrhosis and portal hypertension. Suggestions for 2.9 cm mass within the anterior segment right lobe of the liver cannot be further characterized by ultrasound. The pancreas is incompletely evaluated due to interposed bowel gas but visualized portions appear normal. Gallbladder and biliary system are unremarkable without gallstones or ductal dilatation. The common bile duct measures 3.8 mm diameter. The spleen is enlarged and measures 23 cm maximal length with normal contour and echogenicity and no evidence for focal splenic lesion identified. The bilateral kidneys are normal in appearance without hydronephrosis. Right kidney measures 12.4 x 6.9 x 5.4 cm. Left kidney measures 12.9 x 6.5 x 5.2 cm. The abdominal aorta is normal in appearance and measures 2.4 cm maximal diameter. Impression: 1. Above findings compatible with cirrhosis and portal hypertension. 2. 2.9 cm mass within the right lobe of the liver cannot be further characterized. 3. Splenomegaly. 4. Trace ascites. Electronically Signed by Ivan Miranda MD 08/06/2018 09:42 A
== END ==
LOC: M RAD 08:24
DX: Z87.442 Personal history of urinary calculi (principal); R16.1 Splenomegaly, not elsewhere classified; R18.8 Other ascites

== ENCOUNTER → 2018-08-07 | Outpatient (CLI) | payer MEDICARE, BC ==
[2018-08-07 09:44] LABS: INR 2.43; PROTHROMBIN TIME 26.9 SECONDS (12.1-14.4)
== END ==
LOC: M LAB 08:54
DX: I48.91 Unspecified atrial fibrillation (principal)

== ENCOUNTER → 2018-08-21 | Outpatient (CLI) | payer MEDICARE, BC ==
--- NOTE | 2018-08-21 11:37 | REP ---
ULTRASOUND URINARY BLADDER: Real-time sonographic evaluation of the urinary bladder performed. The bladder measures 8.9 x 8.4 x 9.1 cm for a total volume of 444 mL. Bladder wall appears mildly thickened and trabeculated. No mass or calculus is seen. Post void residual is 73 mL which is 16.5% of the original volume. Prostate measures 4.3 x 3.6 x 4.3 cm for a total volume of 34.8 mL. Electronically Signed by Titi Ledbetter MD 08/22/2018 10:19 A
== END ==
LOC: M RAD 09:57
PROVIDERS: ATTEND Chiropractor Rehabilitation
DX: K76.6 Portal hypertension (principal); R18.8 Other ascites; R16.1 Splenomegaly, not elsewhere classified; K76.89 Other specified diseases of liver; K74.60 Unspecified cirrhosis of liver

== ENCOUNTER → 2018-09-03 | Outpatient (CLI) | payer MEDICARE, BC ==
[~2018-09-03] MED LIST changes: +SOTA80TA2 PO; +SYNT125T PO
[2018-09-03 10:20] LABS: INR 2.29; PROTHROMBIN TIME 25.6 SECONDS (12.1-14.4)
== END ==
LOC: M LAB 09:35
PROVIDERS: ATTEND Nurse Practitioner Adult Health
DX: Z79.01 Long term (current) use of anticoagulants (principal)

== ENCOUNTER 2018-09-04 07:38 | Outpatient (CLI) | payer MEDICARE, BC ==
[~2018-09-04] VITALS: Ht 188 cm; Wt 120.9 kg
[~2018-09-04 07:38] MED LIST changes: +ACETAMINOPHEN TAB 650MG DOSE (2X325MG) PO SCH; -SOTA80TA2 PO; -SYNT125T PO; +diphenhydrAMINE 25 MG CAP PO SCH
[2018-09-04 07:45] VITALS: BP 134/77
[2018-09-04 12:00] VITALS: BP 117/69
[2018-09-09] MEDS ORDERED: SYNT125T PO (09:15)
[2018-09-09] MEDS ORDERED: SOTA80TA2 PO (09:15)
== END 2018-09-04 12:15 | disposition home or self-care (01) ==
LOC: M INFU 07:38
PROVIDERS: ATTEND Internal Medicine Medical Oncology
DX: D64.9 Anemia, unspecified (principal); D75.81 Myelofibrosis; Z91.041 Radiographic dye allergy status
CPT/HCPCS: 36415; 36430; 86850; 86900; 86901; 86920; P9016

== ENCOUNTER → 2018-10-02 | Outpatient (CLI) | payer MEDICARE, BC ==
[~2018-10-02] MED LIST changes: -ACETAMINOPHEN TAB 650MG DOSE (2X325MG) PO SCH; +SOTA80TA2 PO; +SYNT125T PO; -diphenhydrAMINE 25 MG CAP PO SCH
[2018-10-02 11:12] LABS: INR 2.67
== END ==
LOC: M LAB 10:24
PROVIDERS: ATTEND Internal Medicine Interventional Cardiology
DX: I48.91 Unspecified atrial fibrillation (principal)

== ENCOUNTER → 2018-10-09 | Outpatient (CLI) | payer MEDICARE, BC ==
[~2018-10-09] MED LIST changes: -ASPI1TAB PO; +ASPI81TA26 PO
== END ==
LOC: M LAB 09:57
PROVIDERS: ATTEND Internal Medicine Gastroenterology
DX: K74.60 Unspecified cirrhosis of liver (principal); I85.00 Esophageal varices without bleeding; D64.9 Anemia, unspecified; K44.9 Diaphragmatic hernia without obstruction or gangrene

== ENCOUNTER → 2018-10-30 | Outpatient (CLI) | payer MEDICARE, BC ==
[2018-10-30 13:03] LABS: INR 3.48; PROTHROMBIN TIME 35.8 SECONDS (12.1-14.4)
== END ==
LOC: M LAB 08:50
PROVIDERS: ATTEND Internal Medicine Interventional Cardiology
DX: I48.91 Unspecified atrial fibrillation (principal)

== ENCOUNTER → 2018-11-06 | Outpatient (CLI) | payer MEDICARE, BC ==
[2018-11-06 10:19] LABS: INR 2.34; PROTHROMBIN TIME 26.2 SECONDS (12.1-14.4)
== END ==
LOC: M LAB 09:45
PROVIDERS: ATTEND Internal Medicine Interventional Cardiology
DX: I48.91 Unspecified atrial fibrillation (principal)

== ENCOUNTER → 2018-11-20 | Outpatient (CLI) | payer MEDICARE, BC ==
[2018-11-20 13:15] LABS: INR 2.45; PROTHROMBIN TIME 27.1 SECONDS (12.1-14.4)
== END ==
LOC: M LAB 11:53
PROVIDERS: ATTEND Internal Medicine Interventional Cardiology
DX: I48.91 Unspecified atrial fibrillation (principal)

== ENCOUNTER → 2018-12-18 | Outpatient (CLI) | payer MEDICARE, BC ==
[~2018-12-18] MED LIST changes: +VITA-257 PO
[2018-12-18 11:11] LABS: INR 2.87; PROTHROMBIN TIME 30.7 SECONDS (12.1-14.4)
== END ==
LOC: M LAB 10:03
PROVIDERS: ATTEND Internal Medicine Interventional Cardiology
DX: I48.91 Unspecified atrial fibrillation (principal)

== ENCOUNTER → 2018-12-25 | Outpatient (CLI) | payer MEDICARE, BC | LOC: M LAB 10:15 | PROVIDERS: ATTEND Urology | DX: Z12.5 Encounter for screening for malignant neoplasm of prostate (principal) ==

== ENCOUNTER → 2019-01-15 | Outpatient (CLI) | payer MEDICARE, BC ==
[2019-01-15 10:08] LABS: INR 3.38; PROTHROMBIN TIME 34.2 SECONDS (11.8-14.0)
== END ==
LOC: M LAB 09:33
PROVIDERS: ATTEND Internal Medicine Interventional Cardiology
DX: I48.91 Unspecified atrial fibrillation (principal)

== ENCOUNTER 2019-02-07 19:03 | Inpatient (IN) | payer MEDICARE, BC ==
[~2019-02-07] VITALS: Ht 188 cm; Wt 117.0 kg
[2019-02-07] MEDS ORDERED: NS 1,000 ML IV ONE (19:45)
[2019-02-07 20:15] LABS: BASO % 0.1 % (0.0-1.0); EOS % 0.1 % (0.0-3.0); HEMATOCRIT 22.9 % (42.0-52.0); HEMOGLOBIN 7.4 g/dl (13.5-17.5); LYMPH # 0.3 10^3/uL (1.5-4.5); LYMPH % 3.6 % (24.0-44.0); MEAN CORPUSCULAR HEMOGLOBIN 31.1 pg (27.0-33.0); MEAN CORPUSCULAR HGB CONC 32.3 g/dl (32.0-36.5); MEAN CORPUSCULAR VOLUME 96.2 fl (80.0-96.0); MONO # 0.5 10^3/uL (0.0-0.8); MONO % 6.7 % (0.0-5.0); NEUTROPHILS # 6.3 10^3/uL (1.8-7.7); RED BLOOD COUNT 2.38 10^6/uL (4.30-6.10); WHITE BLOOD COUNT 7.1 10^3/uL (4.0-10.0)
[2019-02-07] MEDS ORDERED: ACETAMINOPHEN TAB 650MG DOSE (2X325MG) PO ONE (20:15)
[2019-02-07 20:24] LABS: INR 2.97; PROTHROMBIN TIME 30.8 SECONDS (11.8-14.0)
[2019-02-07 20:28] LABS: PLATELET COUNT, AUTOMATED 37 10^3/uL (150-450)
[2019-02-07 20:29] LABS: NEUTROPHILS % 88.7 % (36.0-66.0)
[2019-02-07 20:35] LABS: ALBUMIN 3.3 GM/DL (3.2-5.2); BILIRUBIN,DIRECT 0.7 MG/DL (0.0-0.2); BILIRUBIN,TOTAL 1.8 MG/DL (0.2-1.0); TOTAL PROTEIN 6.7 GM/DL (6.4-8.2)
[2019-02-07] MEDS: ALPRAZolam 0.5 MG TAB PO SCH (21:00)
[2019-02-07] MEDS ORDERED: DILUENT IV ONE (21:30)
[2019-02-07] MEDS ORDERED: NS IV ONE (21:30)
[2019-02-07] MEDS ORDERED: diphenhydrAMINE INJ 50MG/ML VIAL (J1200) IV ONE (22:15)
[2019-02-07] MEDS ORDERED: PIPERACILLIN/TAZOBACTAM SOD 3.375 GM in D5W MINI-BAG PLUS 50 ML IV ONE (22:15)
[2019-02-07] MEDS ORDERED: methylPREDNISolone INJ 125 MG/2 ML VIAL (J2930) IV ONE (22:15)
[2019-02-07] MEDS ORDERED: COUM1TAB17 PO (22:48)
[2019-02-07] MEDS ORDERED: LEVO112T2 PO (22:48)
[2019-02-07] MEDS ORDERED: ALPR0.5T3 PO (22:48)
[2019-02-07] MEDS ORDERED: ISOVUE-370 76% 100ML VIAL (Q9967) As Ordered ONE (22:49)
--- NOTE | 2019-02-07 23:45 | REPVR ---
EXAM: CT Chest With Contrast EXAM DATE/TIME: 02/07/2019 10:56 PM CLINICAL HISTORY: 68 years old, male; Other: Sirs, hypotension; Additional info: Sirs, hypotension, no source TECHNIQUE: Imaging protocol: Axial computed tomography images of the chest with intravenous contrast. Coronal and sagittal reformatted images were created and reviewed. Radiation optimization: All CT scans at this facility use at least one of these dose optimization techniques: automated exposure control; mA and/or kV adjustment per patient size (includes targeted exams where dose is matched to clinical indication); or iterative reconstruction. Contrast material: ISOVUE 370;Contrast volume: 100 ml;Contrast route: IV; COMPARISON: No relevant prior studies available. FINDINGS: Tubes, catheters and devices: Pacemaker from the left. Lungs: Minimal scattered fibro-atelectatic change, greatest in the left base. Pleural space: Unremarkable. No pneumothorax. No pleural effusion. Heart: Coronary artery calcifications are present. Mediastinum: Cyst adjacent to the splenic hilum measuring 2.3 cm. Aorta: Unremarkable. No aortic aneurysm. Other veins: Nodular liver with portal venous collaterals anterior the liver and mild splenomegaly. There appear to be paraesophageal portal venous collaterals or varices. Lymph nodes: Unremarkable. No enlarged lymph nodes. Bones/joints: Anterior wedge configuration of multiple mid thoracic segments with segmental ankylosis through the mid and lower thoracic spine and increased thoracic kyphosis. Soft tissues: Unremarkable. IMPRESSION: 1. Minimal scattered fibro-atelectatic change, greatest in the left base. No definite infiltrates. 2. Decreased height and wedge configuration of several mid thoracic segments with moderate thoracic kyphosis and segmental ankylosis through the mid and lower thoracic spine. 3. Hepatic cirrhosis with portal venous collateralization and splenomegaly. 4. Otherwise negative CT chest. No focal infiltrates. Electronically signed by: Chaka Smith On 02/07/2019 23:45:03 PM
--- NOTE | 2019-02-07 23:51 | REPVR ---
EXAM: CT Abdomen and Pelvis With Contrast EXAM DATE/TIME: 02/07/2019 10:56 PM CLINICAL HISTORY: 68 years old, male; Other: Hypotension; Additional info: Sirs, hypotension, no source TECHNIQUE: Imaging protocol: Axial computed tomography images of the abdomen and pelvis with intravenous contrast. Coronal and sagittal reformatted images were created and reviewed. Radiation optimization: All CT scans at this facility use at least one of these dose optimization techniques: automated exposure control; mA and/or kV adjustment per patient size (includes targeted exams where dose is matched to clinical indication); or iterative reconstruction. Contrast material: ISOVUE 370;Contrast volume: 100 ml;Contrast route: IV; COMPARISON: CT ABD PELVIS W/O CONTRAST 04/22/2018 10:30 AM FINDINGS: Lungs: Minimal bibasilar fibro-atelectatic change, left greater than right. Mediastinum: There appear to be paraesophageal portal venous collaterals or varices. Liver: Nodular liver with portal venous collaterals extending anteriorly from the liver. The portal venous collaterals extends through the anterior abdomen into the pelvis and into the right lateral pelvic sidewall and internal iliac veins. Gallbladder and bile ducts: Normal. No calcified stones. No ductal dilation. Pancreas: Normal. No ductal dilation. Spleen: Splenomegaly measuring 21.7 cm. Splenic cyst adjacent to the splenic hilum measuring 2.4 cm. Portal venous collaterals are noted medial to the spleen. Adrenals: Normal. No mass. Kidneys and ureters: Normal. No hydronephrosis. Stomach and bowel: Normal. No obstruction. No mucosal thickening. Appendix: A normal appendix is seen. Intraperitoneal space: Trace peritoneal fluid adjacent to the hepatic tip. Vasculature: There is mild calcification of the abdominal aorta with extension into the iliac arteries. Lymph nodes: Normal. No enlarged lymph nodes. Bladder: Unremarkable as visualized. Reproductive: Unremarkable as visualized. Bones/joints: No acute fracture. No dislocation. Soft tissues: Unremarkable. IMPRESSION: 1. Hepatic cirrhosis with splenomegaly and portal venous collateralization. There is trace fluid adjacent to the hepatic tip. 2. Otherwise negative CT abdomen/pelvis. COMMENT: Consistent with the [employer]'s Incidental Findings Committee Report (J Am Jazmine Radiol 2010): Unless the patient's specific circumstances suggest otherwise, any liver lesion 0.5 cm or less, any cystic kidney lesion less than 1.0 cm, and/or any adrenal lesion 1.0 cm or less not otherwise characterized in this report as possessing suspicious or indeterminate imaging features is/are highly likely to be benign and do not require follow-up imaging or biopsy. Electronically signed by: Chaka Smith On 02/07/2019 23:51:37 PM
[2019-02-08] MEDS ORDERED: MAALOX 30 ML SUSP *UDC PO PRN (01:45)
[2019-02-08 02:34] VITALS: BP 104/62
--- NOTE | 2019-02-08 02:44 | HPEPDOC ---
General Date of Admission 02/08/19 Date of Service: Feb 08, 2019 Chief Complaint The patient is a 68-year-old male admitted with a reason for visit of Weakness. 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 In [facility] ED he was found to be febrile to 101.6. his lactate was elevated. He had a CT chest and a CT abdomen and pelvis done which however did not reveal any definite source of infection. respiratory pain has been ordered. Patient had a recent echo with Dr Trejo in [place] on 02/05/19 and has not been told about any abnormality. He also had 1 episode of emesis this morning. He was admitted for evaluation of fever and SIRS. Home Medications Scheduled Allopurinol (Zyloprim) 300 Mg Tab, 300 MG PO DAILY, (Reported) Alprazolam (Alprazolam) 0.5 Mg Tablet, 0.5 MG PO QHS, (Reported) Aspirin (Aspirin EC) 81 Mg Tab, 81 MG PO DAILY, (Reported) Cholecalciferol (Vitamin D3) (Vitamin D3) 2,000 Unit Cap, 2,000 UNIT PO DAILY, (Reported) Docusate Sodium (Colace) 100 Mg Cap, 100 MG PO DAILY, (Reported) Levothyroxine Sodium (Levothyroxine Sodium) 112 Mcg Tablet, 112 MCG PO DAILY, (Reported) Metformin HCl (Metformin HCl) 1,000 Mg Tab, 1,000 MG PO BID, (Reported) Multivitamins (Thera M Plus Tablet) 1 Tab Tab, 1 TAB PO DAILY, (Reported) [place]-3 Acid Ethyl Esters ([place]-3 Acid Ethyl Esters) 1 Cap Cap, 1 GM PO QID, (Reported) Omeprazole (Omeprazole) 20 Mg Cap, 20 MG PO DAILY, (Reported) Ruxolitinib Phosphate (Jakafi) 10 Mg Tab, 10 MG PO BID, (Reported) Sotalol HCl (Sotalol) 80 Mg Tab, 80 MG PO DAILY, (Reported) Vitamin E (Dl,Tocopheryl Acet) (Vitamin E) 400 Unit Capsule, 400 UNIT PO DAILY, (Reported) Warfarin Sodium (Warfarin Sodium) 5 Mg Tab, 10 MG PO 6XWK, (Reported) MON, , WED, TH, SAT, SUN; IN EVENING Warfarin Sodium (Coumadin) 5 Mg Tablet, 15 MG PO 1XWK, (Reported) FRIDAYS IN EVENING Allergies Coded Allergies: Contrast Media (Verified Allergy, Intermediate, HIVES, 02/07/19) Past Medical History Medical History Myelofibrosis , chronic anemia and thrombocytopenia, pancytopenia, Alcoholic Liver cirrhosis , massive splenomegaly, Obesity, hypothyroid, hyperlipidemia, MELANIE does not use CPAP ,gout, kidney stones; atrial fibrillation s/p cardiac ablation and has Pacer and defibrillator, CAD s/p stents, gastric ulcer, 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 Family History Significant Family History: Diabetes (brother), Heart disease (fathr), Hypertension (brother), Other (Mother ALS, father stroke. ) Social History * Smoker: former Smoker Alcohol: sober Drugs: denies A-FIB/CHADSVASC A-FIB History Current/History of A-Fib/PAF?: Yes Current PO Anticoag Therapy: Yes Review of Systems Constitutional: Reports: Chills, Fever, Malaise, Weakness, Fatigue Eyes: Denies: Pain, Vision change ENT: Denies: Head Aches, Ear Pain, Dysphagia Skin: Denies: Rash, Lesions, Breakdown Pulmonary: Denies: Dyspnea, Cough Cardiovascular: Denies: Chest Pain, Palpitations, Orthopnea, Paroxysmal Noc. Dyspnea, Lt Headedness Gastrointestinal: Reports: Vomiting; Denies: Nausea, Abdominal Pain, Diarrhea, Constipation Genitourinary: Denies: Dysuria, Frequency, Incontinence, Retention Hematologic: Reports: Bruising, Bleeding Excessively, [place] Neurological: Reports: Weakness, Confusion Psych: Reports: Mood Normal; Denies: Memory Issues Physical Examination General Exam: Positive: Alert, Cooperative, Mild Distress Eye Exam: Positive: PERRLA, Conjunctiva & lids normal, EOMI, Other Eye Symptoms (left face with residual [place] Palsy); Negative: Sclera icteric ENT Exam: Positive: Atraumatic, Mucous membr. moist/pink, Pharynx Normal Neck Exam: Positive: Supple; Negative: JVD, thyromegaly Chest Exam: Positive: Clear to auscultation, Normal air movement Heart Exam: Positive: Rate Normal, Regular Rhythm, Normal S1, Normal S2; Negative: Murmurs, Rubs Telemetry: Positive: No significant arrhythmia Abdomen Exam: Positive: Normal bowel sounds, Soft, Hepatospenomegaly (liver about 6 fingers below costal margin); Negative: Tenderness Extremity Exam: Negative: Clubbing, Cyanosis, Edema Neuro Exam: Positive: Normal Speech, Normal Tone Psych Exam: Positive: Memory Intact, Oriented x 3 Vital Signs Vital Signs Date Time Temp Pulse Resp B/P (MAP) Pulse Ox O2 Delivery O2 Flow Rate FiO2 02/08/19 00:18 70 96 02/08/19 00:15 105/53 (70) 02/08/19 00:03 16 02/07/19 23:13 98.1 02/07/19 21:03 Room Air Laboratory Data Labs 24H Laboratory Tests 2 02/07/19 20:03: Immature Granulocyte % (Auto) 0.8, White Blood Count 7.1, Red Blood Count 2.38L, Hemoglobin 7.4L, Hematocrit 22.9L, Mean Corpuscular Volume 96.2H, Mean C orpuscular Hemoglobin 31.1, Mean Corpuscular Hemoglobin Concent 32.3, Red Cell Distribution Width 18.6H, Platelet Count 37L, Neutrophils (%) (Auto) 88.7H, Lymphocytes (%) (Auto) 3.6L, Monocytes (%) (Auto) 6.7H, Eosinophils (%) (Auto) 0.1, Basophils (%) (Auto) 0.1, Neutrophils # (Auto) 6.3, Lymphocytes # (Auto) 0.3L, Monocytes # (Auto) 0.5, Eosinophils # (Auto) 0.0, Basophils # (Auto) 0.0, Nucleated Red Blood Cells % (auto) 0.7H, Immature Platelet Fraction 7.6, Prothrombin Time 30.8H, Prothromb Time International Ratio 2.97, Activated Partial Thromboplast Time 51.0H, POC Glucose (Misc Panel) 105, POC Sodium (Misc Panel) 141, POC Potassium (Misc Panel) 3.6, POC Chloride (Misc Panel) 106, POC T otal CO2 (Misc Panel) 20.0L, POC Blood Urea Nitrogen (Misc Panel 19, POC Ionized Calcium (Misc Panel) 4.5, POC Creatinine (Misc Panel) 0.7, POC Hematocrit (Misc Panel) 21.0L, Lactic Acid Level 2.6*H, Aspartate Amino Transf (AST/SGOT) 36, Alanine Aminotransferase (ALT/SGPT) 27, Alkaline Phosphatase 48, Total Bilirubin 1.8H, Direct Bilirubin 0.7H, Total Protein 6.7, Albumin 3.3, Albumin/Globulin Ratio 0.97L, Lipase 85 02/07/19 20:59: Urine Color YELLOW, Urine Appearance CLEAR, Urine pH 6.0, Urine Specific [place] 1.017, Urine Protein NEGATIVE, Urine Glucose (UA) NEGATIVE, Urine Ketones TRACEH, Urine Blood 1+H, Urine Nitrite NEGATIVE, Urine Bilirubin NEGATIVE, Urine Urobilinogen 4.0H, Urine Leukocyte Esterase NEGATIVE, Urine WBC (Auto) 1, Urine RBC (Auto) 12H, Urine Hyaline Casts (Auto) 0, Urine Bacteria (Auto) NEGATIVE, Urine Squamous Epithelial Cells 0, Urine Mucus (Auto) SMALL, Urine Sperm (Auto) 02/08/19 00:29: CBC/BMP Laboratory Tests 02/07/19 20:03 Red Blood Count 2.38 L, Mean Corpuscular Volume 96.2 H, Mean Corpuscular Hemoglobin 31.1, Mean Corpuscular Hemoglobin Concent 32.3, Red Cell Distribution Width 18.6 H, Neutrophils (%) (Auto) 88.7 H, Lymphocytes (%) (Auto) 3.6 L, Monocytes (%) (Auto) 6.7 H, Eosinophils (%) (Auto) 0.1, Basophils (%) (Auto) 0.1, Neutrophils # (Auto) 6.3, Lymphocytes # (Auto) 0.3 L, Monocytes # (Auto) 0.5, Eosinophils # (Auto) 0.0, Basophils # (Auto) 0.0 Microbiology Microbiology 02/07/19 Blood Culture, Received Pending 02/07/19 Blood Culture, Received Pending Assessment/Plan 68 year old male with PMH of Myelofibrosis , pancytopenia, Alcoholic Liver cirrhosis , massive splenomegaly, Obesity, hypothyroid, hyperlipidemia, MELANIE does not use CPAP ,gout, kidney stones; atrial fibrillation s/p cardiac ablation and has Pacer and defibrillator, CAD s/p stents, gastric ulcer, 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 This am at around 9 am after breakfast he started feeling very chilled and shaky and threw up he sat in [place] sun for some time but continued to be very chilly and became more weaker so went to bed . Slep on ad off al afternoon and then in late afternoon woke up confused , delirius, couls not stand up so came to the ED. In the ED he was found to be febrile to 101.6. his lactate was elevated. He had a CT chest and a CT abdomen and pelvis done which however did not reveal any definite source of infection. respiratory pain has been ordered. Patient had a recent echo with Dr Trejo in [place] on 02/05/19 and has not been told about any abnormality. He also had 1 episode of emesis this morning. He was admitted for evaluation of fever and SIRS. Fever etiology not yet determined cultures are in progress, UA clean Get the echo results from box office attendant on Saturday. resp viral panel pending continue Zosyn Lactic acidosis this is probably due to cirrhosis of liver rather than sepsis. however ever as Bp was lowish on admission will continue IVF. Myelofibrosis JAK2 positive myelofibrosis diagnosed October 2012, on ruxolitinib 10 mg b.i.d. begun January 2018. Also followed by Neto Curry MD, [facility]. As per Hem onc Transfusion parameters: Hemoglobin less than 8, 1 unit; hemoglobin less than 7, 2 units. Alcoholic Cirrhosis of liver with benign 2.5 cm mass biopsy of mass negative. Atrial fibrillation, on anticoagulation. has pacemaker and defibrillator continue with home dose of coumadin Diabetes hold metformin will give lispro as per sliding scale Hypertension Bp lowish on admission will hold sotalol for now. Hyperlipidemia MELANIE non complaint with CPAP GERD continue Omeprazole CAD continue ASA, statin, hold betablocker for now Gout continue allopurinol Asbestosis of lungs with scarring. Multifactorial anemia, contributors: Portal hypertension/cirrhosis, myelofibrosis, hemolysis (secondary to portal hypertension). Suspected extravascular hemolytic anemia secondary to portal hypertension and cirrhosis. Pancytopenia secondary to both myelofibrosis and cirrhosis. Multifactorial splenomegaly, including component of myelofibrosis, portal hypertension, and hypersplenism. Most but subjectively improved reduction in spleen size and symptoms since beginning ruxolitinib. Plan / VTE VTE Prophylaxis Ordered?: Yes MARI RECINOS MD Feb 08, 2019 01:07
[2019-02-08] MEDS: PIPERACILLIN/TAZOBACTAM SOD 3.375 GM in D5W MINI-BAG PLUS 50 ML IV SCH ×4 (03:32→23:39)
[2019-02-08 06:08] LABS: MEAN CORPUSCULAR HEMOGLOBIN 30.7 pg (27.0-33.0); MEAN CORPUSCULAR HGB CONC 32.1 g/dl (32.0-36.5); MEAN CORPUSCULAR VOLUME 95.5 fl (80.0-96.0); RED BLOOD COUNT 1.99 10^6/uL (4.30-6.10); WHITE BLOOD COUNT 2.8 10^3/uL (4.0-10.0)
[2019-02-08 06:13] LABS: HEMOGLOBIN 6.1 g/dl (13.5-17.5); PLATELET COUNT, AUTOMATED 27 10^3/uL (150-450)
[2019-02-08 06:28] LABS: BLOOD UREA NITROGEN 19 MG/DL (7-18); CARBON DIOXIDE LEVEL 21 MEQ/L (21-32); CHLORIDE LEVEL 113 MEQ/L (98-107); CREATININE FOR GFR 0.83 MG/DL (0.70-1.30); GLOMERULAR FILTRATION RATE > 60.0 (>42); GLUCOSE, FASTING 157 MG/DL (70-100); POTASSIUM SERUM 3.4 MEQ/L (3.5-5.1); SODIUM LEVEL 142 MEQ/L (136-145)
[2019-02-08 06:39] LABS: LYMPHOCYTES 3 % (16-52); MONOCYTES 1 % (0-8); NEUTROPHILS 93 % (35-75)
[2019-02-08 06:40] LABS: PLATELET ESTIMATE MARKED DECREASE (NORMAL)
[2019-02-08 06:41] LABS: ANISOCYTOSIS 2+; TEAR DROP CELLS 1+
[2019-02-08 06:42] LABS: OVALOCYTES 1+
[2019-02-08 08:00] VITALS: BP 99/56
[2019-02-08] MEDS: LEVOTHYROXINE 112MCG TABLET (0.112MG) PO SCH (08:00)
--- NOTE | 2019-02-08 08:15 | REP ---
Clinical: Systemic inflammatory response syndrome . Comparison: 02/01/2017 . Findings: Cardiomegaly. The lung singh are clear without acute consolidation, effusion, or pneumothorax. Skeletal structures are intact. Impression: Cardiomegaly. No acute cardiopulmonary process appreciated. Electronically Signed by Ivan Miranda MD 02/08/2019 08:07 A
[2019-02-08] MEDS ORDERED: LEVOTHYROXINE 112MCG TABLET (0.112MG) PO SCH (09:00)
[2019-02-08] MEDS: ALLOPURINOL 300 MG TAB PO SCH (09:51)
[2019-02-08] MEDS: OMEPRAZOLE 20 MG CAP PO SCH (09:51)
[2019-02-08] MEDS: ASPIRIN 81 MG ENTERIC TAB PO SCH (09:52)
[2019-02-08] MEDS ORDERED: NS 1,000 ML IV SCH (13:30)
--- NOTE | 2019-02-08 13:37 | IPNPDOC ---
Text Note Date of Service The patient was seen on 02/08/19. 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 In the emergency room, patient was found to have an elevated lactic acid and a temperature of 102. Patient started on broad-spectrum antibiotics and IV fluid hydration. Hospitalist service was called for further evaluation and treatment. Patient was seen and examined at the bedside. Currently, patient reports that he's feeling better than point arrival to the emergency room. He denies chest pain, shortness of breath or palpitations. He denies any cough, nausea, vomiting, abdominal pain, diarrhea, or urinary discomfort. Objective: Vitals (See below) General: Lying in bed, no acute distress, comfortable, AAOx3 HEENT: NC, AT CVS: RRR, +S1S2 Lungs: Fair air entry b/l, -w/r/r Abdomen: Soft, ND, NT Extremities: - Edema, - Calf tenderness Assessment and plan: Fever / Weakness - possibly 2/2 underlying infection - eitology unclear - Review of systems is negative for any source of infection - No significant leukocytosis; lactic acidosis has resolved - Urine analysis is inconsistent with infection - Respiratory panel negative - Blood cultures pending - CT abdomen / pelvis 02/08: 1. Hepatic cirrhosis with splenomegaly and portal venous collateralization. There is trace fluid adjacent to the hepatic tip. 2. Otherwise negative CT abdomen/pelvis. - CT chest 02/07: 1. Minimal scattered fibro-atelectatic change, greatest in the left base. No definite infiltrates. 2. Decreased height and wedge configuration of several mid thoracic segments with moderate thoracic kyphosis and segmental a nkylosis through the mid and lower thoracic spine. 3. Hepatic cirrhosis with portal venous collateralization and splenomegaly. 4. Otherwise negative CT chest. No focal infiltrates. - c/w Zosyn (Day #1) Lactic acidosis - less likely 2/2 infection, possibly 2/2 cirrhosis - c/w IV fluid hydration Pancytopenia - likely 2/2 Myelofibrosis / Cirrhosis - Leukopenia - Anemia - Hg has trended down; likely 2/2 dilutional etiology - Will transfuse 2 units PRBC - Thrombocytopenia - No evidence of bleeding - Will hold off on transfusion Myelofibrosis - JAK2 positive myelofibrosis diagnosed October 2012 - Follows Heme/Onc at [facility] - Neto Curry Alcoholic Cirrhosis of liver with benign 2.5 cm mass - biopsy of mass negative for malignancy Atrial fibrillation, on anticoagulation. - has pacemaker and defibrillator - Resumed rate control medications - continue with home dose of coumadin - Patient is in process of getting a watchmen procedure complete with his pharmaceutical representative NIDDM2 - c/w ISS HTN - BP at lower limits of normal - c/w transfusions / IV fluids Hyperlipidemia - c/w [place] 3 fatty acids MELANIE - non complaint with CPAP CAD - c/w ASA, Beta block (with holding parameters) Gout - c/w Allopurinol Asbestosis of lungs with scarring. Splenomegaly - likely multifactorial - 2/2 myelofibrosis, portal hypertension, and hypersplenism - Most but subjectively improved reduction in spleen size and symptoms since beginning ruxolitinib. GERD - c/w Omeprazole DVT prophylaxis - c/w full anticoagulation with Coumadin VS,Fishbone, I+O VS, Fishbone, I+O Laboratory Tests 02/07/19 20:03 Red Blood Count 2.38 L, Mean Corpuscular Volume 96.2 H, Mean Corpuscular Hemoglobin 31.1, Mean Corpuscular Hemoglobin Concent 32.3, Red Cell Distribution Width 18.6 H, Neutrophils (%) (Auto) 88.7 H, Lymphocytes (%) (Auto) 3.6 L, Monocytes (%) (Auto) 6.7 H, Eosinophils (%) (Auto) 0.1, Basophils (%) (Auto) 0.1, Neutrophils # (Auto) 6.3, Lymphocytes # (Auto) 0.3 L, Monocytes # (Auto) 0.5, Eosinophils # (Auto) 0.0, Basophils # (Auto) 0.0 02/08/19 05:38 Red Blood Count 1.99 L, Mean Corpuscular Volume 95.5, Mean Corpuscular Hemoglobin 30.7, Mean Corpuscular Hemoglobin Concent 32.1, Red Cell Distribution Width 18.7 H, Lymphocytes # (Auto) , Calcium Level 8.0 L Vital Signs Date Time Temp Pulse Resp B/P (MAP) Pulse Ox O2 Delivery O2 Flow Rate FiO2 02/08/19 08:00 98.5 60 18 99/56 (70) 96 02/07/19 21:03 Room Air I&O- Last 24 Hours up to 6 AM 02/08/19 06:00 Intake Total 4630 ml Output Total 300 ml Balance 4330 ml SHERIDAN SOLANO MD Feb 08, 2019 13:37
[2019-02-08] MEDS: SOTALOL HCL 80 MG TAB PO SCH (15:58)
[2019-02-08] MEDS: OMEGA-3 1000MG CAPSULE PO SCH ×2 (15:58→20:45)
[2019-02-08 16:00] VITALS: BP 118/65
[2019-02-08] MEDS: WARFARIN SOD 5 MG TAB PO SCH (16:55)
[2019-02-08] MEDS ORDERED: VANCOMYCIN HCL 1,000 MG, VIAL MATE ADAPTER 1 EACH in D5W 250 ML IV ONE (18:00)
[2019-02-08 20:00] VITALS: BP 119/62
[2019-02-08] MEDS: ALPRAZolam 0.5 MG TAB PO SCH (20:44)
[2019-02-08] MEDS: VANCOMYCIN HCL 1,000 MG, VIAL MATE ADAPTER 1 EACH in D5W 250 ML IV SCH (20:45)
[2019-02-09] VITALS (8 sets, daily range): BP systolic 94–135; BP diastolic 60–79
[2019-02-09] MEDS: PIPERACILLIN/TAZOBACTAM SOD 3.375 GM in D5W MINI-BAG PLUS 50 ML IV SCH ×4 (04:22→22:25)
[2019-02-09 04:49] LABS: BASO % 0.2 % (0.0-1.0); HEMATOCRIT 24.2 % (42.0-52.0); LYMPH % 5.1 % (24.0-44.0); MEAN CORPUSCULAR HEMOGLOBIN 30.9 pg (27.0-33.0); MEAN CORPUSCULAR HGB CONC 33.1 g/dl (32.0-36.5); MEAN CORPUSCULAR VOLUME 93.4 fl (80.0-96.0); MONO # 0.4 10^3/uL (0.0-0.8); MONO % 7.4 % (0.0-5.0); NEUTROPHILS % 85.4 % (36.0-66.0); RED BLOOD COUNT 2.59 10^6/uL (4.30-6.10); WHITE BLOOD COUNT 4.7 10^3/uL (4.0-10.0)
[2019-02-09 05:10] LABS: BLOOD UREA NITROGEN 18 MG/DL (7-18); CALCIUM LEVEL 8.3 MG/DL (8.8-10.2); CARBON DIOXIDE LEVEL 24 MEQ/L (21-32); CHLORIDE LEVEL 113 MEQ/L (98-107); CREATININE FOR GFR 0.79 MG/DL (0.70-1.30); GLOMERULAR FILTRATION RATE > 60.0 (>42); GLUCOSE, FASTING 104 MG/DL (70-100); LYMPH # 0.2 10^3/uL (1.5-4.5); MAGNESIUM LEVEL 1.9 MG/DL (1.8-2.4); PLATELET COUNT, AUTOMATED 32 10^3/uL (150-450); POTASSIUM SERUM 3.4 MEQ/L (3.5-5.1); SODIUM LEVEL 142 MEQ/L (136-145)
[2019-02-09 05:18] LABS: INR 2.15; PROTHROMBIN TIME 23.8 SECONDS (11.8-14.0)
[2019-02-09] MEDS: VANCOMYCIN HCL 1,000 MG, VIAL MATE ADAPTER 1 EACH in D5W 250 ML IV SCH ×3 (05:34→20:12)
[2019-02-09] MEDS: LEVOTHYROXINE 112MCG TABLET (0.112MG) PO SCH (05:54)
[2019-02-09] MEDS ORDERED: POTASSIUM CHLORIDE 10 MEQ SR TABLET PO ONE (09:00)
[2019-02-09] MEDS ORDERED: PREVNAR 13 VACCINE SYRINGE (CPT CODE:90670) IM ONE (09:00)
[2019-02-09] MEDS: SOTALOL HCL 80 MG TAB PO SCH (09:30)
[2019-02-09] MEDS: OMEGA-3 1000MG CAPSULE PO SCH ×2 (09:30→20:12)
[2019-02-09] MEDS: ASPIRIN 81 MG ENTERIC TAB PO SCH ×2 (09:31→09:56)
[2019-02-09] MEDS: ALLOPURINOL 300 MG TAB PO SCH (09:31)
[2019-02-09] MEDS: OMEPRAZOLE 20 MG CAP PO SCH (09:31)
[2019-02-09] MEDS: WARFARIN SOD 5 MG TAB PO SCH (15:58)
--- NOTE | 2019-02-09 19:33 | IPNPDOC ---
Date Seen The patient was seen on 02/09/19. 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 Patient was seen and examined this morning . His only complaint is slight fatigue and tiredness. He states is feeling much better since he has been admitted. Also endorses that he got a echocardiogram done at his low voltage technician's office on February but he is unsure of the results. He is rudolph erating his IV antibiotics has no diarrhea or nausea. His review of system for infectious process and continues to be negative. His lactic acid is still elevated this morning at 2.8 but he was afebrile overnight. He denies chest pain, shortness of breath or palpitations, cough, vomiting or abdominal pain. OBJECTIVE PHYSICAL EXAMINATION: VITAL SIGNS: Please see below. GENERAL: 68-year-old male sitting comfortably in a chair. Alert no acute distress HEENT: PERRLA, EOMI, moist mucous membranes CARDIOVASCULAR: Regular rate and rhythm normal S1-S2 no murmurs rubs or gallops. RESPIRATORY: Clear to auscultation bilaterally, no wheezes rhonchi or rales. ABDOMINAL: Soft, nontender, nondistended, bowel sounds present. Hepatosplenomegaly present. No masses palpated EXTREMITIES: No edema, no calf tenderness, pulses 2+ out of 4 in radial and dorsalis pedis arteries NEUROLOGICAL: Alert and oriented [address] and time. Cranial nerves III through XII grossly intact, no focal deficits PSYCHOLOGICAL: Mood and affect normal LABORATORY DATA, IMAGING STUDIES, MICROBIOLOGY: Please see below. 02/07/2019 Chest Xray Cardiomegaly. No acute cardiopulmonary process appreciated. CT chest 1. Minimal scattered fibro-atelectatic change, greatest in the left base. No definite infiltrates. 2. Decreased height and wedge configuration of several mid thoracic segments with moderate thoracic kyphosis and segmental ankylosis through the mid and lower thoracic spine. 3. Hepatic cirrhosis with portal venous collateralization and splenomegaly. 4. Otherwise negative CT chest. No focal infiltrates. CT abdomen / pelvis 1. Hepatic cirrhosis with splenomegaly and portal venous collateralization. There is trace fluid adjacent to the hepatic tip. 2. Otherwise negative CT abdomen/pelvis. Echocardiogram: Pending results from Dr. Trejo office. DVT prophylaxis ordered?: Coumadin ASSESSMENT AND PLAN: This is a -year-old [RACE] [GENDER] with . PROBLEMS: Fever / Weakness - possibly 2/2 underlying infection - eitology unclear - Review of systems is negative for any source of infection - afebrile, clinically stable today. Downgrade to MedSur with telemetry. Once we review echocardiogram from his low voltage technician can see about discontinuing his telemetry. - No significant leukocytosis; lactic acidosis still elevated. repeat LA in the AM. - Urine analysis is inconsistent with infection - Respiratory panel negative - Blood cultures - one postive for GRAM POSITIVE COCCI IN [employer]; unsure conta inment repeat blood culture x2 pending. - CT abdomen / pelvis 02/08 and chest /: finding above, negative for infectious process - c/w Zosyn (Day #2) + Vancomycin (Day#2) Lactic acidosis - less likely 2/2 infection, possibly 2/2 cirrhosis - c/w IV fluid hydration Pancytopenia - likely 2/2 Myelofibrosis / Cirrhosis - Leukopenia - Anemia - Hg has trended down; likely 2/2 dilutional etiology - s/p 2 units PRBC -will continue to monitor - Thrombocytopenia - No platelet transfusion unless platelet <10 or active sign of bleeding and platelet<50 -will continue to monitor Myelofibrosis - JAK2 positive myelofibrosis diagnosed October 2012 - Follows Heme/Onc at [facility] - Neto Curry Alcoholic Cirrhosis of liver with benign 2.5 cm mass - biopsy of mass negative for malignancy Atrial fibrillation, on anticoagulation. - has pacemaker and defibrillator - c/w Sotalol and coumadin - possibility watchmen procedure outpatient with his low voltage technician NIDDM2 - c/w ISS HTN (stable) - c/w solatol Hyperlipidemia - c/w [place] 3 fatty acids MELANIE - non complaint with CPAP CAD - c/w ASA, Beta block (with holding parameters) Gout - c/w Allopurinol Asbestosis of lungs with scarring Splenomegaly - likely multifactorial - 2/2 myelofibrosis, portal hypertension, and hypersplenism - Subjectively improved reduction in spleen size and symptoms since beginning ruxolitinib. GERD - c/w Omeprazole DVT prophylaxis -Coumadin VS, I&O, 24H, Loraine Vital Signs/I&O Vital Signs Date Time Temp Pulse Resp B/P (MAP) Pulse Ox O2 Delivery O2 Flow Rate FiO2 02/09/19 16:00 98.1 74 18 125/76 (92) 98 02/07/19 21:03 Room Air I&O- Last 24 Hours up to 6 AM 02/09/19 06:00 Intake Total 3380 ml Output Total 2600 ml Balance 780 ml Laboratory Data 24H LABS Laboratory Tests 2 02/09/19 04:31: Immature Granulocyte % (Auto) 1.9, White Blood Count 4.7, Red Blood Count 2.59L, Hemoglobin 8.0L, Hematocrit 24.2L, Mean Corpuscular Volume 93.4, Mean Corpuscular Hemoglobin 30.9, Mean Corpuscular Hemoglobin Concent 33.1, Red Cell Distribution Width 20.3H, Platelet Count 32L, Neutrophils (%) (Auto) 85.4H, Lymphocytes (%) (Auto) 5.1L, Monocytes (%) (Auto) 7.4H, Eosinophils (%) (Auto) 0.0, Basophils (%) (Auto) 0.2, Neutrophils # (Auto) 4.0, Lymphocytes # (Auto) 0.2L, Monocytes # (Auto) 0.4, Eosinophils # (Auto) 0.0, Basophils # (Auto) 0.0, Nucleated Red Blood Cells % (auto) 0.8H, Immature Platelet Fraction 8.2, Prothrombin Time 23.8H, Prothromb Time International Ratio 2.15, Anion Gap 5L, Glomerular Filtration Rate > 60.0, Blood Urea Nitrogen 18, Creatinine 0.79, Sodium Level 142, Potassium Level 3.4L, Chloride Level 113H, Carbon Dioxide Level 24, Calcium Level 8.3L, Magnesium Level 1.9 CBC/BMP Laboratory Tests 02/09/19 04:31 Red Blood Count 2.59 L, Mean Corpuscular Volume 93.4, Mean Corpuscular Hemoglobin 30.9, Mean Corpuscular Hemoglobin Concent 33.1, Red Cell Distribution Width 20.3 H, Neutrophils (%) (Auto) 85.4 H, Lymphocytes (%) (Auto) 5.1 L, Monocytes (%) (Auto) 7.4 H, Eosinophils (%) (Auto) 0.0, Basophils (%) (Auto) 0.2, Neutrophils # (Auto) 4.0, Lymphocytes # (Auto) 0.2 L, Monocytes # (Auto) 0.4, Eosinophils # (Auto) 0.0, Basophils # (Auto) 0.0, Calcium Level 8.3 L Microbiology Microbiology 02/09/19 Blood Culture, Received Pending 02/09/19 Blood Culture, Received Pending 02/07/19 Blood Culture - Preliminary, Resulted No growth after 24 hours . All specim... 02/07/19 Blood Culture - Preliminary, Resulted 02/08/19 Respiratory Virus Panel (PCR) (LUIS M) - Final, Complete GINI ALVARADO DO Feb 09, 2019 19:33
[2019-02-09] MEDS: ALPRAZolam 0.5 MG TAB PO SCH (20:12)
[2019-02-10] MEDS: PIPERACILLIN/TAZOBACTAM SOD 3.375 GM in D5W MINI-BAG PLUS 50 ML IV SCH ×4 (03:53→22:50)
[2019-02-10] MEDS: LEVOTHYROXINE 112MCG TABLET (0.112MG) PO SCH (05:39)
[2019-02-10] MEDS: VANCOMYCIN HCL 1,000 MG, VIAL MATE ADAPTER 1 EACH in D5W 250 ML IV SCH ×3 (05:39→21:05)
[2019-02-10 06:00] VITALS: BP 127/81
[2019-02-10 06:20] LABS: BASO % 0.6 % (0.0-1.0); EOS % 0.3 % (0.0-3.0); HEMATOCRIT 25.6 % (42.0-52.0); HEMOGLOBIN 8.5 g/dl (13.5-17.5); LYMPH # 0.4 10^3/uL (1.5-4.5); LYMPH % 10.5 % (24.0-44.0); MEAN CORPUSCULAR HEMOGLOBIN 31.1 pg (27.0-33.0); MEAN CORPUSCULAR HGB CONC 33.2 g/dl (32.0-36.5); MEAN CORPUSCULAR VOLUME 93.8 fl (80.0-96.0); MONO # 0.2 10^3/uL (0.0-0.8); MONO % 7.2 % (0.0-5.0); NEUTROPHILS # 2.7 10^3/uL (1.8-7.7); NEUTROPHILS % 80.5 % (36.0-66.0); RED BLOOD COUNT 2.73 10^6/uL (4.30-6.10); WHITE BLOOD COUNT 3.3 10^3/uL (4.0-10.0)
[2019-02-10 06:23] LABS: INR 1.99; PLATELET COUNT, AUTOMATED 37 10^3/uL (150-450); PROTHROMBIN TIME 22.4 SECONDS (11.8-14.0)
[2019-02-10 06:28] LABS: BLOOD UREA NITROGEN 16 MG/DL (7-18); CALCIUM LEVEL 8.6 MG/DL (8.8-10.2); CARBON DIOXIDE LEVEL 27 MEQ/L (21-32); CHLORIDE LEVEL 110 MEQ/L (98-107); CREATININE FOR GFR 0.74 MG/DL (0.70-1.30); GLOMERULAR FILTRATION RATE > 60.0 (>42); GLUCOSE, FASTING 94 MG/DL (70-100); POTASSIUM SERUM 3.5 MEQ/L (3.5-5.1); SODIUM LEVEL 141 MEQ/L (136-145)
[2019-02-10] MEDS: OMEPRAZOLE 20 MG CAP PO SCH (09:52)
[2019-02-10] MEDS: ALLOPURINOL 300 MG TAB PO SCH (09:52)
[2019-02-10] MEDS: ASPIRIN 81 MG ENTERIC TAB PO SCH (09:53)
[2019-02-10] MEDS: OMEGA-3 1000MG CAPSULE PO SCH ×2 (09:53→21:06)
[2019-02-10] MEDS: SOTALOL HCL 80 MG TAB PO SCH (09:54)
[2019-02-10 14:00] VITALS: BP 133/82
--- NOTE | 2019-02-10 15:17 | IPNPDOC ---
Text Note Date of Service The patient was seen on 02/10/19. 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 Patient was seen and examined this morning. He states is feeling much better since he has been admitted. He does admit to night sweats last night which he states he has not had since he started the Jafaki, he has not taken it for 3 days now. He denies fevers, headache, vision changes, dizziness, SOB, cough, chest pain, palpitations, lightheadedness, edema, nausea/vomitting, abdominal pain, diarrhea, constipation, urinary frequency or urgency, muscle aches, joint pain, confusion, weakness, change in mental status, or change in mood. OBJECTIVE: PHYSICAL EXAMINATION: VITAL SIGNS: Please see below. GENERAL: 68-year-old male sitting comfortably in a chair. alert, no acute distress HEENT: PERRLA, EOMI, moist mucous membranes CARDIOVASCULAR: Regular rate and rhythm normal S1-S2 no murmurs rubs or gallops. RESPIRATORY: Clear to auscultation bilaterally, no wheezes rhonchi or rales. ABDOMINAL: Soft, nontender, nondistended, bowel sounds present. Hepatosplenomegaly present. No masses palpated EXTREMITIES: No edema, no calf tenderness, pulses 2+ out of 4 in radial and dorsalis pedis arteries NEUROLOGICAL: Alert and oriented [address] and time[address] cranial nerves III through XII grossly intact, no focal deficits PSYCHOLOGICAL: Mood and affect normal LABORATORY DATA, IMAGING STUDIES, MICROBIOLOGY: Please see below. 02/07/2019 -Chest XR: Cardiomegaly. No acute cardiopulmonary process appreciated. -CT chest: 1. Minimal scattered fibro-atelectatic change, greatest in the left base. No definite infiltrates. 2. Decreased height and wedge configuration of several mid thoracic segments with moderate thoracic kyphosis and segmental ankylosis through the mid and lower thoracic spine. 3. Hepatic cirrhosis with portal ve nous collateralization and splenomegaly. 4. Otherwise negative CT chest. No focal infiltrates. -CT abdomen / pelvis 1. Hepatic cirrhosis with splenomegaly and portal venous collateralization. There is trace fluid adjacent to the hepatic tip. 2. Otherwise negative CT abdomen/pelvis. -Echocardiogram: Received report from Dr. Trejo's office. I reviewed the study and interpretation as outlined below. 1. Left ventricular cavity size mildly dilated with mild increase in wall thickness. 2. LV systolic function is severely impaired with resting estimated ejection fraction 25-30%. 3. The left ventricular wall motion is diffuse severe global hypokinesis. 4. LV diastolic function is abnormal with elevated filling pressure. 5. Left atrial size is severely enlarged. 6. Mild myxomatous degeneration of the mitral leaflet, mild mitral annular calcification, mild mitral regurgitation. 7. Aortic valve mildly sclerotic, no stenosis or regurgitation. 8. Ascending aorta is mildly dilated measuring up to 4.0 cm ASSESSMENT AND PLAN: 68 y/o male with a history of myelofibrosis, pancytopenia, atrial fibrillation, CAD, cirrhosis, who presented to the ED with fevers, chills and weakness, found to have elevated lactic acid and febrile to 102, was admitted for fever without known source 1. Fever / Weakness - possibly 2/2 underlying infection - eitology unclear - Review of systems is negative for any source of infection - afebrile, clinically stable today. Downgrade to MedSurg with telemetry. Once we review echocardiogram from his complaint inspector can see about discontinuing his telemetry. - No significant leukocytosis; lactic acidosis resolved. - Urine analysis is inconsistent with infection - Respiratory panel negative - Blood cultures - one postive for GRAM POSITIVE COCCI IN [employer]; likely this was a contaminant because 2 repeat blood cultures are negative after 24 hours - CT abdomen / pelvis 02/08 and chest /: finding above, negative for infectious process - Pro calcitonin level was 3.78, suggesting the patient does have some sort of infection despite the unknown source - c/w Zosyn (Day #3) + Vancomycin (Day#3), we will likely switch over to oral antibiotics tomorrow with broad coverage due to unknown source 2. Lactic acidosis - less likely 2/2 infection, possibly 2/2 cirrhosis - s/p IV fluid hydration, resolved 3. Pancytopenia - likely 2/2 Myelofibrosis / Cirrhosis - Leukopenia - Anemia, Hg has trended down; likely 2/2 dilutional etiology, s/p 2 units PRBC, will continue to monitor - Thrombocytopenia, no platelet transfusion unless platelet <10 or active sign of bleeding and platelet<50, will continue to monitor 4. Myelofibrosis - JAK2 positive myelofibrosis diagnosed October 2012 - Hold his Jakafi while being treated for sepsis - Follows Heme[facility]Onc at [facility] - Neto Curry 5. Alcoholic Cirrhosis of liver with benign 2.5 cm mass - biopsy of mass negative for malignancy 6. Atrial fibrillation, on anticoagulation. - has pacemaker and defibrillator - c/w Sotalol and coumadin. Will adjust coumadin dose based on INR - possibility watchmen procedure outpatient with his complaint inspector 7. NIDDM2 - c/w ISS 8. HTN (stable) - c/w solatol 9. Hyperlipidemia - c/w [place] 3 fatty acids 10. MELANIE - non complaint with CPAP 11. CAD - c/w ASA, beta block (with holding parameters) 12. Gout - c/w Allopurinol 13. Asbestosis of lungs with scarring 14. Splenomegaly - likely multifactorial - 2/2 myelofibrosis, portal hypertension, and hypersplenism - Subjectively improved reduction in spleen size and symptoms since beginning ruxolitinib. 15. GERD - c/w Omeprazole 16. DVT prophylaxis -On Coumadin, using TEDs as well VS,Fishbone, I+O VS, Fishbone, I+O Laboratory Tests 02/10/19 05:43 Red Blood Count 2.73 L, Mean Corpuscular Volume 93.8, Mean Corpuscular Hemoglobin 31.1, Mean Corpuscular Hemoglobin Concent 33.2, Red Cell Distribution Width 20.0 H, Neutrophils (%) (Auto) 80.5 H, Lymphocytes (%) (Auto) 10.5 L, Monocytes (%) (Auto) 7.2 H, Eosinophils (%) (Auto) 0.3, Basophils (%) (Auto) 0.6, Neutrophils # (Auto) 2.7, Lymphocytes # (Auto) 0.4 L, Monocytes # (Auto) 0.2, Eosinophils # (Auto) 0.0, Basophils # (Auto) 0.0, Calcium Level 8.6 L Vital Signs Date Time Temp Pulse Resp B/P (MAP) Pulse Ox O2 Delivery O2 Flow Rate FiO2 02/10/19 06:00 97.9 71 17 127/81 (96) 96 02/07/19 21:03 Room Air I&O- Last 24 Hours up to 6 AM 02/10/19 06:00 Intake Total 1000 ml Output Total 2350 ml Balance -1350 ml UNRULY KINSEY PGY-1 Feb 10, 2019 09:34
[2019-02-10] MEDS: WARFARIN SOD 5 MG TAB PO SCH (16:10)
[2019-02-10] MEDS ORDERED: WARFARIN SOD 2.5 MG TAB PO ONE (17:00)
[2019-02-10] MEDS: ALPRAZolam 0.5 MG TAB PO SCH (21:06)
[2019-02-10 22:00] VITALS: BP 125/73
[2019-02-11] MEDS: PIPERACILLIN/TAZOBACTAM SOD 3.375 GM in D5W MINI-BAG PLUS 50 ML IV SCH ×2 (03:48→10:27)
[2019-02-11] MEDS: VANCOMYCIN HCL 1,000 MG, VIAL MATE ADAPTER 1 EACH in D5W 250 ML IV SCH (05:13)
[2019-02-11] MEDS: LEVOTHYROXINE 112MCG TABLET (0.112MG) PO SCH ×2 (05:59→06:15)
[2019-02-11 06:00] VITALS: BP 107/55
[2019-02-11 06:24] LABS: BASO % 0.5 % (0.0-1.0); EOS % 0.5 % (0.0-3.0); HEMATOCRIT 24.6 % (42.0-52.0); LYMPH # 0.3 10^3/uL (1.5-4.5); LYMPH % 13.8 % (24.0-44.0); MEAN CORPUSCULAR HEMOGLOBIN 30.9 pg (27.0-33.0); MEAN CORPUSCULAR HGB CONC 32.5 g/dl (32.0-36.5); MONO # 0.3 10^3/uL (0.0-0.8); MONO % 12.4 % (0.0-5.0); NEUTROPHILS # 1.5 10^3/uL (1.8-7.7); NEUTROPHILS % 69.1 % (36.0-66.0); RED BLOOD COUNT 2.59 10^6/uL (4.30-6.10); WHITE BLOOD COUNT 2.2 10^3/uL (4.0-10.0)
[2019-02-11 06:25] LABS: PLATELET COUNT, AUTOMATED 31 10^3/uL (150-450)
[2019-02-11 06:31] LABS: INR 2.38; PROTHROMBIN TIME 25.8 SECONDS (11.8-14.0)
[2019-02-11 06:43] LABS: BLOOD UREA NITROGEN 16 MG/DL (7-18); CALCIUM LEVEL 8.4 MG/DL (8.8-10.2); CARBON DIOXIDE LEVEL 28 MEQ/L (21-32); CHLORIDE LEVEL 110 MEQ/L (98-107); CREATININE FOR GFR 0.71 MG/DL (0.70-1.30); GLOMERULAR FILTRATION RATE > 60.0 (>42); GLUCOSE, FASTING 115 MG/DL (70-100); POTASSIUM SERUM 3.5 MEQ/L (3.5-5.1); SODIUM LEVEL 142 MEQ/L (136-145)
[2019-02-11 08:47] VITALS: BP 107/55
[2019-02-11] MEDS: SOTALOL HCL 80 MG TAB PO SCH (08:47)
[2019-02-11] MEDS: OMEPRAZOLE 20 MG CAP PO SCH (08:47)
[2019-02-11] MEDS: OMEGA-3 1000MG CAPSULE PO SCH (08:47)
[2019-02-11] MEDS: ASPIRIN 81 MG ENTERIC TAB PO SCH (08:47)
[2019-02-11] MEDS: ALLOPURINOL 300 MG TAB PO SCH (08:47)
[2019-02-11] MEDS ORDERED: PREVNAR 13 VACCINE SYRINGE (CPT CODE:90670) IM ONE (09:00)
[2019-02-11] MEDS ORDERED: BACT400T PO (10:20)
--- NOTE | 2019-02-11 14:55 | DS.PDOC ---
Discharge Summary General Date of Admission Feb 08, 2019 at 01:33 Date of Discharge 02/11/2019 Primary Care Physician: LISA ROACH M.D. Attending Physician: ARY LOMELI MD Discharge Summary PROCEDURES PERFORMED DURING STAY: None. ADMITTING DIAGNOSES: 1. Fever, unclear etiology. 2. Pancytopenia. 3. Myelofibrosis. 4. Alcoholic cirrhosis. 5. Atrial fibrillation. 6. Nun-rmnjhht-iucjzanys diabetes mellitus type 2. 7. Hypertension 8. GERD. 9. Gout. 10. CAD DISCHARGE DIAGNOSES: 1. Fever, unclear etiology. 2. Pancytopenia. 3. Myelofibrosis. 4. Alcoholic cirrhosis. 5. Atrial fibrillation. 6. Jju-jqhldee-wlbijaqki diabetes mellitus type 2. 7. Hypertension 8. GERD. 9. Gout. 10. CAD COMPLICATIONS/CHIEF COMPLAINT: Myelofibrosis, Sirs. HISTORY OF PRESENT ILLNESS: 68-year-old male presented to the ED with 1 day history of chills, malaise, weakness, delirium, and confusion. 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 He also reported one episode of vomiting that morning after breakfast. He was able to rest during the day and fell asleep a few times but awoke confused and delirious. He was found to have a fever up to 101.6 in the ED, the blood pressure 105/53. Is also found to have an elevated lactic acid level. He was treated with broad-spectrum antibiotics, IV fluid hydration. He was admitted to PCU for further management. HOSPITAL COURSE: Patient was admitted and continued on broad-spectrum antibiotics with Zosyn and vancomycin and continued fluid resuscitation. His immunosuppressive medication to treat his myelofibrosis, Jakafi, was held during this admission in order to optimize his immune function. His symptoms soon resolved and each day. He continued to feel improvement. Etiology of the fever was thought to be an infection. Pro-calcitonin level was also checked and found to be elevated at 3.78. Two cultures were drawn and one of the initial cultures came back positive for a Staphylococcus organism, while a second blood culture remained negative. Two epeat cultures were drawn and both resulted negative. Therefore, the one positive blood culture was considered contamination. A respiratory virus panel PCR was negative. A CT of the abdomen and pelvis was negative for any infectious process. A chest x-ray and CT of the chest was negative for any acute infectious process. Echocardiogram results were obtained from Dr. Trejo's office for echocardiogram that was done on 02/05/2019, which d id not show any vegetations in the heart. After ruling out causes of infection and with clinical improvement of he patient symptoms, he was able to discharged on broad-spectrum antibiotics with Bactrim to complete a seven-day course of antibiotics. On the second day of the patient's admission, he was found to have a drop in his hemoglobin level to 6.1, down from 7.4. Prior evening. He was infused with 2 units PRBCs and his hemoglobin improved to 8.0. The rest of his admission, his hemoglobin level was stable around 8.0. On the day of discharge, patient was found to be stable and safe for discharge. DISCHARGE MEDICATIONS: Please see below. ALLERGIES: Please see below. PHYSICAL EXAMINATION ON DISCHARGE: VITAL SIGNS: Please see below. GENERAL: 68-year-old male sitting comfortably in a chair. alert, no acute distress HEENT: PERRLA, EOMI, moist mucous membranes CARDIOVASCULAR: Regular rate and rhythm normal S1-S2 no murmurs rubs or gallops. RESPIRATORY: Clear to auscultation bilaterally, no wheezes rhonchi or rales. ABDOMINAL: Soft, nontender, nondistended, bowel sounds present. Hepatosplenomegaly present. No masses palpated EXTREMITIES: No edema, no calf tenderness, pulses 2+ out of 4 in radial and dorsalis pedis arteries NEUROLOGICAL: Alert and oriented [address] and time[address] cranial nerves III through XII grossly intact, no focal deficits PSYCHOLOGICAL: Mood and affect normal LABORATORY DATA: Please see below. IMAGING: -Chest XR: Cardiomegaly. No acute cardiopulmonary process appreciated. -CT chest: 1. Minimal scattered fibro-atelectatic change, greatest in the left base. No definite infiltrates. 2. Decreased height and wedge configuration of several mid thoracic segments with moderate thoracic kyphosis and segmental ankylosis through the mid and lower thoracic spine. 3. Hepatic cirrhosis with portal venous collateralization and splenomegaly. 4. Otherwise negative CT chest. No focal infiltrates. -CT abdomen / pelvis 1. Hepatic cirrhosis with splenomegaly and portal venous collateralization. There is trace fluid adjacent to the hepatic tip. 2. Otherwise negative CT abdomen/pelvis. -Echocardiogram: Received report from Dr. Trejo's office. I reviewed the study and interpretation as outlined below. 1. Left ventricular cavity size mildly dilated with mild increase in wall thickness. 2. LV systolic function is severely impaired with resting estimated ejection fraction 25-30%. 3. The left ventricular wall motion is diffuse severe global hypokinesis. 4. LV diastolic function is abnormal with elevated filling pressure. 5. Left atrial size is severely enlarged. 6. Mild myxomatous degeneration of the mitral leaflet, mild mitral annular calcification, mild mitral regurgitation. 7. Aortic valve mildly sclerotic, no stenosis or regurgitation. 8. Ascending aorta is mildly dilated measuring up to 4.0 cm PROGNOSIS: Fair ACTIVITY: As tolerated. DIET: As Tolerated DISCHARGE PLAN: Home DISPOSITION: Home, Self-Care. DISCHARGE INSTRUCTIONS: 1. Please follow up with your PCP in 7-10 days 2. Please follow up with your oncologist as scheduled 3. Please take the full course of antibiotics. You can take the first dose tonight and continue to take one tablet twice a day. 4. Restart the Jakafi on the day after you finish the course of antibiotics. 5. If symptoms return or condition worsens, seek additional care by calling PCP or coming in to the ED to be further evaluated. ITEMS TO FOLLOWUP ON ON OUTPATIENT: 1. Fever, unknown source. DISCHARGE CONDITION: Stable. TIME SPENT ON DISCHARGE: Greater than 35 minutes. Vital Signs/I&Os Vital Signs Date Time Temp Pulse Resp B/P (MAP) Pulse Ox O2 Delivery O2 Flow Rate FiO2 02/11/19 08:47 68 107/55 02/11/19 06:00 98.3 20 100 02/07/19 21:03 Room Air I&O- Last 24 Hours up to 6 AM 02/11/19 06:00 Intake Total 2415 ml Output Total 2300 ml Balance 115 ml Laboratory Data Labs 24H Laboratory Tests 2 02/10/19 19:52: Vancomycin Level Trough 15.1 02/11/19 05:56: Immature Granulocyte % (Auto) 3.7H, White Blood Count 2.2L, Red Blood Count 2.59L, Hemoglobin 8.0L, Hematocrit 24.6L, Mean Corpuscular Volume 95.0, Mean Corpuscular Hemoglobin 30.9, Mean Corpuscular Hemoglobin Concent 32.5, Red Cell Distribution Width 19.6H, Platelet Count 31L, Neutrophils (%) (Auto) 69.1H, Lymphocytes (%) (Auto) 13.8L, Monocytes (%) (Auto) 12.4H, Eosinophils (%) (Auto) 0.5, Basophils (%) (Auto) 0.5, Neutrophils # (Auto) 1.5L, Lymphocytes # (Auto) 0.3L, Monocytes # (Auto) 0.3, Eosinophils # (Auto) 0.0, Basophils # (Auto) 0.0, Nucleated Red Blood Cells % (auto) 2.3H, Immature Platelet Fraction 9.1, Prothrombin Time 25.8H, Prothromb Time International Ratio 2.38, Anion Gap 4L, Glomerular Filtration Rate > 60.0, Blood Urea Nitrogen 16, Creatinine 0.71, Sodium Level 142, Potassium Level 3.5, Chloride Level 110H, Carbon Dioxide Level 28, Calcium Level 8.4L CBC/BMP Laboratory Tests 02/11/19 05:56 Red Blood Count 2.59 L, Mean Corpuscular Volume 95.0, Mean Corpuscular Hemoglobin 30.9, Mean Corpuscular Hemoglobin Concent 32.5, Red Cell Distribution Width 19.6 H, Neutrophils (%) (Auto) 69.1 H, Lymphocytes (%) (Auto) 13.8 L, Monocytes (%) (Auto) 12.4 H, Eosinophils (%) (Auto) 0.5, Basophils (%) (Auto) 0.5, Neutrophils # (Auto) 1.5 L, Lymphocytes # (Auto) 0.3 L, Monocytes # (Auto) 0.3, Eosinophils # (Auto) 0.0, Basophils # (Auto) 0.0, Calcium Level 8.4 L Microbiology Microbiology 02/09/19 Blood Culture - Preliminary, Resulted No Growth after 48 hours. All Specime... 02/09/19 Blood Culture - Preliminary, Resulted No Growth after 48 hours. All Specime... 02/07/19 Blood Culture - Preliminary, Resulted No Growth after 72 hours. All specime... 02/07/19 Blood Culture - Final, Complete Staphylococcus Lugdunensis 02/08/19 Respiratory Virus Panel (PCR) (LUIS M) - Final, Complete Discharge Medications Scheduled Allopurinol (Zyloprim) 300 Mg Tab, 300 MG PO DAILY, (Reported) Alprazolam (Alprazolam) 0.5 Mg Tablet, 0.5 MG PO QHS, (Reported) Aspirin (Aspirin EC) 81 Mg Tab, 81 MG PO DAILY, (Reported) Cholecalciferol (Vitamin D3) (Vitamin D3) 2,000 Unit Cap, 2,000 UNIT PO DAILY, (Reported) Docusate Sodium (Colace) 100 Mg Cap, 100 MG PO DAILY, (Reported) Levothyroxine Sodium (Levothyroxine Sodium) 112 Mcg Tablet, 112 MCG PO DAILY, (Reported) Metformin HCl (Metformin HCl) 1,000 Mg Tab, 1,000 MG PO BID, (Reported) Multivitamins (Thera M Plus Tablet) 1 Tab Tab, 1 TAB PO DAILY, (Reported) Monroe-3 Acid Ethyl Esters (Monroe-3 Acid Ethyl Esters) 1 Cap Cap, 1 GM PO QID, (Reported) Omeprazole (Omeprazole) 20 Mg Cap, 20 MG PO DAILY, (Reported) Sotalol HCl (Sotalol) 80 Mg Tab, 80 MG PO DAILY, (Reported) Sulfamethoxazole/Trimethoprim (Bactrim 400-80 mg Tablet) 1 Each Tablet, 1 TAB PO BID Vitamin E (Dl,Tocopheryl Acet) (Vitamin E) 400 Unit Capsule, 400 UNIT PO DAILY, (Reported) Warfarin Sodium (Warfarin Sodium) 5 Mg Tab, 10 MG PO 6XWK, (Reported) MON, , WED, , SAT, SUN; IN EVENING Warfarin Sodium (Coumadin) 5 Mg Tablet, 15 MG PO 1XWK, (Reported) FRIDAYS IN EVENING Allergies Coded Allergies: Contrast Media (Verified Allergy, Intermediate, HIVES, 02/07/19) UNRULY KINSEY PGY-1 Feb 11, 2019 14:55
[2019-02-13] MEDS ORDERED: WARFARIN SOD 5 MG TAB PO SCH (17:00)
== END 2019-02-11 12:12 | disposition home or self-care (01) | DRG 864 ==
LOC: M ED 19:03 → M ED INP 02-08 01:33 → M PCU 02-08 02:30 → M MSPAV 02-09 21:00
PROVIDERS: ADMIT Internal Medicine Nephrology; ATTEND Internal Medicine
PROC: 30233N1 Transfusion of Nonautologous Red Blood Cells into Peripheral Vein, Percutaneous Approach (ICD-10-PCS; principal; 2019-02-08)
DX: R50.9 Fever, unspecified (principal); D75.81 Myelofibrosis; D61.818 Other pancytopenia; E87.2 Acidosis; K76.6 Portal hypertension; D64.9 Anemia, unspecified; K70.30 Alcoholic cirrhosis of liver without ascites; R16.1 Splenomegaly, not elsewhere classified; E66.9 Obesity, unspecified; E03.9 Hypothyroidism, unspecified; E78.5 Hyperlipidemia, unspecified; G47.33 Obstructive sleep apnea (adult) (pediatric); E11.9 Type 2 diabetes mellitus without complications; J61 Pneumoconiosis due to asbestos and other mineral fibers; M10.9 Gout, unspecified; I48.91 Unspecified atrial fibrillation; Z87.442 Personal history of urinary calculi; Z95.810 Presence of automatic (implantable) cardiac defibrillator; I25.10 Atherosclerotic heart disease of native coronary artery without angina pectoris; Z95.5 Presence of coronary angioplasty implant and graft; K27.9 Peptic ulcer, site unspecified, unspecified as acute or chronic, without hemorrhage or perforation; G51.0 Bell's palsy; Z79.01 Long term (current) use of anticoagulants; Z79.82 Long term (current) use of aspirin; Z79.84 Long term (current) use of oral hypoglycemic drugs; Z79.899 Other long term (current) drug therapy; Z91.041 Radiographic dye allergy status; Z87.891 Personal history of nicotine dependence; Z68.33 Body mass index [BMI] 33.0-33.9, adult

== ENCOUNTER → 2019-02-16 | Outpatient (CLI) | payer MEDICARE, BC ==
[~2019-02-16] MED LIST changes: +ALPR0.5T3 PO; +BACT400T PO; +COUM1TAB17 PO; +LEVO112T2 PO; +PLAV1TAB2 PO; +PRAD150C6 PO; -VALA1TAB2 PO; +VALA1TAB64 PO
[2019-02-16 10:26] LABS: INR 2.75
== END ==
LOC: M LAB 09:53
PROVIDERS: ATTEND Nurse Practitioner Adult Health
DX: Z79.01 Long term (current) use of anticoagulants (principal)

== ENCOUNTER → 2019-03-17 | Outpatient (CLI) | payer MEDICARE, BC ==
[~2019-03-17] MED LIST changes: -PLAV1TAB2 PO; -PRAD150C6 PO; +VALA1TAB2 PO; -VALA1TAB64 PO
[2019-03-17 09:54] LABS: INR 2.39; PROTHROMBIN TIME 25.9 SECONDS (11.8-14.0)
== END ==
LOC: M LAB 09:10
PROVIDERS: ATTEND Nurse Practitioner Adult Health
DX: I48.0 Paroxysmal atrial fibrillation (principal)

== ENCOUNTER → 2019-03-23 | Outpatient (CLI) | payer MEDICARE, BC ==
[~2019-03-23] MED LIST changes: +PLAV1TAB2 PO; +PRAD150C6 PO; -VALA1TAB2 PO; +VALA1TAB64 PO
--- NOTE | 2019-03-23 09:12 | REP ---
Right upper quadrant ultrasound for known cirrhosis: There is no cholelithiasis. The gallbladder wall is mildly thickened measuring up to 3.4 mm. This is nonspecific and could represent fibrosis, edema, or neoplasm. There is no intrahepatic or extrahepatic biliary duct dilatation, the common biliary duct measures 3.2 mm in diameter. The hepatic parenchyma demonstrates diffusely coarsened echotexture, compatible with cirrhosis. There is questionable nodularity along the medial margin of the liver. No definite nodularity is seen along the peripheral capsular surface of the liver. The umbilical vein is patent, this is compatible with portal hypertension. There are two hepatic masses, one in the right lobe measuring 2.7 x 4.8 x 2.2 cm and on the left lobe measuring 2.5 x 2.1 x 2.6 cm. These masses are otherwise nonspecific by ultrasound. I would recommend follow-up hepatic MRI for further evaluation of these masses, particularly in view of the clinical history of cirrhosis. The visualized areas of the pancreas are unremarkable. The pancreas is mostly obscured by bowel gas. The right kidney is normal size measuring 12.2 x 5.6 x 5.1 cm. There is no right renal hydronephrosis or calculus. There is no right renal solid or cystic mass. No right upper quadrant ascites is identified. Impression: Diffusely coarsened hepatic echotexture compatible with the clinical history of cirrhosis. Questionable nodularity along the medial margin of the liver. There are two hepatic masses what on the right lobe and one left lobe as described. Follow-up MRI for further evaluation of these masses is recommended as discussed above. There is a patent umbilical vein, compatible with portal hypertension. There is mild nonspecific gallbladder wall thickening, edema, fibrosis versus neoplasm. This could also be further evaluated by MRI. No ascites is identified. Electronically Signed by Titi Jackson MD 03/23/2019 09:03 A
== END ==
LOC: M RAD 07:22
PROVIDERS: ATTEND Internal Medicine Gastroenterology
DX: K74.69 Other cirrhosis of liver (principal)

== ENCOUNTER → 2019-04-16 | Outpatient (CLI) | payer MEDICARE, BC ==
[~2019-04-16] MED LIST changes: -PLAV1TAB2 PO; -PRAD150C6 PO; +VALA1TAB2 PO; -VALA1TAB64 PO
[2019-04-16 10:32] LABS: PROTHROMBIN TIME 31.1 SECONDS (11.8-14.0)
== END ==
LOC: M LAB 09:46
PROVIDERS: ATTEND Nurse Practitioner Adult Health
DX: I48.0 Paroxysmal atrial fibrillation (principal)

== ENCOUNTER → 2019-04-22 | Outpatient (REF) | payer MEDICARE, BC ==
[2019-04-24 08:20] LABS: LDL DIRECT 35 mg/dL (0-99)
== END ==
LOC: M LAB REF 17:02
PROVIDERS: ATTEND Family Medicine
DX: E78.5 Hyperlipidemia, unspecified (principal)

== ENCOUNTER → 2019-05-02 | Outpatient (CLI) | payer MEDICARE, BC ==
[2019-05-02 12:46] LABS: BASO % 0.8 % (0.0-1.0); EOS % 0.8 % (0.0-3.0); HEMATOCRIT 24.6 % (42.0-52.0); HEMOGLOBIN 7.9 g/dl (13.5-17.5); LYMPH # 0.5 10^3/uL (1.5-5.0); LYMPH % 19.7 % (24.0-44.0); MEAN CORPUSCULAR HEMOGLOBIN 30.9 pg (27.0-33.0); MEAN CORPUSCULAR HGB CONC 32.1 g/dl (32.0-36.5); MEAN CORPUSCULAR VOLUME 96.1 fl (80.0-96.0); MONO # 0.2 10^3/uL (0.0-0.8); MONO % 6.7 % (0.0-5.0); NEUTROPHILS # 1.6 10^3/uL (1.5-8.5); NEUTROPHILS % 69.1 % (36.0-66.0); RED BLOOD COUNT 2.56 10^6/uL (4.30-6.10); WHITE BLOOD COUNT 2.4 10^3/uL (4.0-10.0)
[2019-05-02 12:47] LABS: PLATELET COUNT, AUTOMATED 49 10^3/uL (150-450)
== END ==
LOC: M LAB 11:45
PROVIDERS: ATTEND Internal Medicine Interventional Cardiology
DX: D61.818 Other pancytopenia (principal)

== ENCOUNTER → 2019-05-18 | Outpatient (CLI) | payer MEDICARE, BC ==
[2019-05-18 11:30] LABS: ALBUMIN 3.6 GM/DL (3.2-5.2); ALT/SGPT 27 U/L (12-78); BILIRUBIN,TOTAL 1.3 MG/DL (0.2-1.0); BLOOD UREA NITROGEN 17 MG/DL (7-18); CARBON DIOXIDE LEVEL 27 MEQ/L (21-32); CHLORIDE LEVEL 111 MEQ/L (98-107); CREATININE FOR GFR 0.72 MG/DL (0.70-1.30); GLOMERULAR FILTRATION RATE > 60.0 (>42); GLUCOSE, FASTING 99 MG/DL (70-100); POTASSIUM SERUM 4.3 MEQ/L (3.5-5.1); SODIUM LEVEL 143 MEQ/L (136-145)
== END ==
LOC: M LAB 10:12
PROVIDERS: ATTEND Internal Medicine Gastroenterology
DX: R16.0 Hepatomegaly, not elsewhere classified (principal); K74.0 Hepatic fibrosis; R94.5 Abnormal results of liver function studies

== ENCOUNTER → 2019-05-26 | Outpatient (CLI) | payer MEDICARE, BC ==
[~2019-05-26] MED LIST changes: +GASTROGRAFIN SOLUTION 30ML (Q9963) As Ordered ONE
== END ==
LOC: M RAD 11:20
PROVIDERS: ATTEND Internal Medicine Gastroenterology
DX: K74.0 Hepatic fibrosis (principal); R16.0 Hepatomegaly, not elsewhere classified; R94.5 Abnormal results of liver function studies; Z53.9 Procedure and treatment not carried out, unspecified reason

== ENCOUNTER → 2019-06-08 | Outpatient (CLI) | payer MEDICARE, BC ==
[~2019-06-08] MED LIST changes: +ISOVUE-370 76% 100ML VIAL (Q9967) As Ordered ONE; +PRAD150C6 PO
--- NOTE | 2019-06-08 14:47 | REP ---
Clinical: Evaluate liver mass. Technique: Axial precontrast, arterial phase, portal venous phase, and delayed phase images of the abdomen using 100 ml Isovue 370 intravenous contrast material with coronal and sagittal re-formations. Comparison: 02/07/2019. Findings: Cirrhotic changes to the liver are noted. There is a 3.1 cm subtle heterogeneous minimally enhancing lesion along the inferior aspect of the medial left lobe (image 55) which is suggestive of neoplasm. There is a second more subtle vague hypodense presumed mass in the anterior segment of the right lobe (image 27) without obvious enhancement. Splenomegaly and portal venous hypertension with portosystemic shunting noted. Pancreas, gallbladder, bilateral adrenal glands and kidneys are relatively normal / stable. The visualized enteric system is without obstruction or obvious acute process. Colonic diverticulosis noted. No free air. No ascites. No obvious adenopathy. Limited evaluation of the lung bases demonstrate chronic changes along with small stable pericardial effusion. Impression: 1. Current examination demonstrates two nonspecific mass lesions in the liver as described above. Consider contrast enhanced MRI evaluation and/or biopsy for further investigation. 2. Underlying cirrhotic changes including splenomegaly, portal venous hypertension and portosystemic shunting. Electronically Signed by Ivan Miranda MD 06/08/2019 02:38 P
== END ==
LOC: M RAD 12:54
PROVIDERS: ATTEND Internal Medicine Gastroenterology
DX: R93.2 Abnormal findings on diagnostic imaging of liver and biliary tract (principal); K76.6 Portal hypertension; K74.0 Hepatic fibrosis; R16.0 Hepatomegaly, not elsewhere classified; R94.5 Abnormal results of liver function studies
CPT/HCPCS: 74170; Q9963; Q9967

== ENCOUNTER 2019-06-09 11:42 | Outpatient (CLI) | payer MEDICARE, BC ==
[2019-06-09] VITALS (8 sets, daily range): BP systolic 122–135; BP diastolic 70–75
[~2019-06-09 11:42] MED LIST changes: +ACETAMINOPHEN TAB 650MG DOSE (2X325MG) PO SCH; -GASTROGRAFIN SOLUTION 30ML (Q9963) As Ordered ONE; -ISOVUE-370 76% 100ML VIAL (Q9967) As Ordered ONE; -VALA1TAB2 PO; +VALA1TAB64 PO; +diphenhydrAMINE 25 MG CAP PO SCH
--- NOTE | 2019-06-10 08:52 | MEDONC ---
MEDICAL ONCOLOGY / HEMATOLOGY FOLLOWUP DATE OF SERVICE: 06/09/2019 DIAGNOSIS JAK2 positive myelofibrosis diagnosed in October 2012 on ruxolitinib. Followed also by Neto Curry MD, [facility]. Transfusion parameters: Hemoglobin less than 8, 1 unit; hemoglobin less than 7, 2 units. Please see 04/15/2019 and multiple other notes for well-documented additional hematologic diagnoses. CURRENT THERAPY: Ruxolitinib 10 mg b.i.d. INTERVAL HISTORY: Mr. Gregorio is here following his watchman procedure in April to help discontinue his atrial fibrillation so that he could go off Coumadin. It was apparently a longer procedure than anticipated, he believes this is why his hemoglobin today is 7.5, lower than usual. It has been many months since he has required transfusion. His other counts are within his usual limits. He is quite loquacious and offered no major new complaints. 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 REVIEW OF SYSTEMS: CONSTITUTIONAL: No fever, chills, sweats, or weight loss. Occasional fatigue, nothing major or new. HEENT: No oral discomfort or mouth or lip ulcers. Hearing normal in both ears. RESPIRATORY: Denies cough, dyspnea, hemoptysis, pleurisy. CARDIOVASCULAR: Denies chest pain, palpitations. MUSCULOSKELETAL: Denies skeletal pain, joint swelling, pain, or erythema. GENITOURINARY: No history of urinary frequency, burning, hematuria, or pain. GASTROINTESTINAL: No nausea, vomiting, constipation, diarrhea, dysphagia, bleeding, or anorexia. SKIN: Denies rash, ecchymosis, petechiae, jaundice. NEUROLOGICAL: No headache, visual difficulty, motor weakness, sensory deficits. No paresthesias. EXTREMITIES: No extremity edema. LABORATORIES: WBC 2.9, hemoglobin 7.5, hematocrit 24, platelets 37, MCV 98. Most recent CMP 05/18/2019 unremarkable. IMPRESSION: 68-year-old man with JAK2 positive myelofibrosis on ruxolitinib with transfusion parameters as noted, but decreased for transfusion need since being on 10 mg b.i.d. The patient also has portal hypertension, cirrhosis, history of atrial fibrillation, now status post watchman procedure and regular rate and rhythm, pancytopenia, which is multifactorial due to myelofibrosis and cirrhosis and splenomegaly also multifactorial with partial reduction in spleen size on ruxolitinib. ECOG performance status 0/1, active with golf and social activities. PLAN: 1. Continue ruxolitinib 10 mg b.i.d. 2. 1 unit RBC transfusion. Written informed consent for transfusion was obtained after reviewing the risks, benefits and side effects including risk of transfusion reaction, infection with HIV or AIDS, hepatitis B or C, anaphylaxis and benefits of decreased fatigue and alternative of no transfusion. 3. 1-month interval return with CBC, CMP clinical exam. Electronically Signed by Letty Maurice MD 06/11/2019 04:41 P DD: Letty Maurice MD 06/09/2019 05:49 P DT: connie 06/10/2019 08:39 A CC: MD Neto Marte MD Jason White, MD
== END 2019-06-09 15:03 | disposition home or self-care (01) ==
LOC: M OPCLI4PV 11:42 → M MSPAV 11:47 → M OPCLI4PV 15:03
PROVIDERS: ATTEND Internal Medicine Medical Oncology
DX: D64.9 Anemia, unspecified (principal); D75.81 Myelofibrosis

== ENCOUNTER → 2019-06-16 | Outpatient (CLI) | payer MEDICARE, BC ==
[~2019-06-16] MED LIST changes: -ACETAMINOPHEN TAB 650MG DOSE (2X325MG) PO SCH; -diphenhydrAMINE 25 MG CAP PO SCH
[2019-06-16 11:30] LABS: HEMATOCRIT 26.5 % (42.0-52.0); HEMOGLOBIN 8.2 g/dl (13.5-17.5); MEAN CORPUSCULAR HEMOGLOBIN 30.4 pg (27.0-33.0); MEAN CORPUSCULAR HGB CONC 30.9 g/dl (32.0-36.5); MEAN CORPUSCULAR VOLUME 98.1 fl (80.0-96.0); WHITE BLOOD COUNT 2.2 10^3/uL (4.0-10.0)
[2019-06-16 11:32] LABS: PLATELET COUNT, AUTOMATED 38 10^3/uL (150-450)
[2019-06-16 11:46] LABS: INR 1.35; PROTHROMBIN TIME 16.4 SECONDS (11.8-14.0)
[2019-06-16 12:00] LABS: ALBUMIN 3.5 GM/DL (3.2-5.2); ALT/SGPT 44 U/L (12-78); BILIRUBIN,TOTAL 1.4 MG/DL (0.2-1.0); BLOOD UREA NITROGEN 16 MG/DL (7-18); CALCIUM LEVEL 8.7 MG/DL (8.8-10.2); CARBON DIOXIDE LEVEL 30 MEQ/L (21-32); CHLORIDE LEVEL 109 MEQ/L (98-107); GLOMERULAR FILTRATION RATE > 60.0 (>42); GLUCOSE, FASTING 83 MG/DL (70-100); POTASSIUM SERUM 4.2 MEQ/L (3.5-5.1); SODIUM LEVEL 142 MEQ/L (136-145); TOTAL PROTEIN 6.8 GM/DL (6.4-8.2)
== END ==
LOC: M LAB 10:03
PROVIDERS: ATTEND Internal Medicine Gastroenterology
DX: R16.0 Hepatomegaly, not elsewhere classified (principal); D64.9 Anemia, unspecified; K74.0 Hepatic fibrosis; R94.5 Abnormal results of liver function studies

== ENCOUNTER → 2019-07-28 | Outpatient (REF) | payer MEDICARE, BC ==
[~2019-07-28] MED LIST changes: +PLAV1TAB2 PO
[2019-07-30 13:25] LABS: FOLATE 13.1 NG/ML
[2019-07-30 13:43] LABS: PERCENT SATURATION 48.7 % (19.7-50.0)
== END ==
LOC: M LAB REF 11:48
PROVIDERS: ATTEND Family Medicine
DX: Z79.899 Other long term (current) drug therapy (principal); Z79.82 Long term (current) use of aspirin; D75.81 Myelofibrosis

== ENCOUNTER → 2019-11-18 | Outpatient (CLI) | payer MEDICARE, BC ==
[~2019-11-18] MED LIST changes: +SOTA80TA32 PO; +VALA1TAB5 PO; -VALA1TAB64 PO
[2019-11-18 09:55] LABS: BASO % 0.7 % (0.0-1.0); HEMATOCRIT 28.4 % (42.0-52.0); HEMOGLOBIN 9.2 g/dl (13.5-17.5); LYMPH # 0.5 10^3/uL (1.5-5.0); MEAN CORPUSCULAR HEMOGLOBIN 30.6 pg (27.0-33.0); MEAN CORPUSCULAR HGB CONC 32.4 g/dl (32.0-36.5); MEAN CORPUSCULAR VOLUME 94.4 fl (80.0-96.0); MONO # 0.3 10^3/uL (0.0-0.8); NEUTROPHILS % 68.6 % (36.0-66.0); RED BLOOD COUNT 3.01 10^6/uL (4.30-6.10); WHITE BLOOD COUNT 2.9 10^3/uL (4.0-10.0)
[2019-11-18 09:56] LABS: PLATELET COUNT, AUTOMATED 62 10^3/uL (150-450)
== END ==
LOC: M LAB 09:12
PROVIDERS: ATTEND Internal Medicine Medical Oncology
DX: D69.6 Thrombocytopenia, unspecified (principal)

== ENCOUNTER → 2019-12-22 | Outpatient (CLI) | payer MEDICARE, BC | LOC: M LAB 08:33 | PROVIDERS: ATTEND Urology | DX: Z12.5 Encounter for screening for malignant neoplasm of prostate (principal); R97.20 Elevated prostate specific antigen [PSA] ==

== ENCOUNTER → 2019-12-22 | Outpatient (CLI) | payer MEDICARE, BC ==
[~2019-12-22] MED LIST changes: +METO1TAB33 PO; +PROBCAP14 PO
[2019-12-22 09:30] LABS: BASO % 0.4 % (0.0-1.0); EOS % 1.2 % (0.0-3.0); HEMATOCRIT 26.6 % (42.0-52.0); HEMOGLOBIN 8.7 g/dl (13.5-17.5); LYMPH # 0.5 10^3/uL (1.5-5.0); LYMPH % 20.5 % (24.0-44.0); MEAN CORPUSCULAR HEMOGLOBIN 30.9 pg (27.0-33.0); MEAN CORPUSCULAR HGB CONC 32.7 g/dl (32.0-36.5); MEAN CORPUSCULAR VOLUME 94.3 fl (80.0-96.0); MONO # 0.3 10^3/uL (0.0-0.8); MONO % 10.2 % (0.0-5.0); NEUTROPHILS # 1.6 10^3/uL (1.5-8.5); NEUTROPHILS % 66.9 % (36.0-66.0); PLATELET COUNT, AUTOMATED 54 10^3/uL (150-450); RED BLOOD COUNT 2.82 10^6/uL (4.30-6.10); WHITE BLOOD COUNT 2.4 10^3/uL (4.0-10.0)
== END ==
LOC: M LAB 08:41
PROVIDERS: ATTEND Internal Medicine Medical Oncology
DX: D69.6 Thrombocytopenia, unspecified (principal); R97.20 Elevated prostate specific antigen [PSA]

== ENCOUNTER → 2020-04-22 | Outpatient (CLI) | payer MEDICARE, BC ==
--- NOTE | 2020-04-22 08:25 | REP ---
INDICATION: HISTORY OF LIVER MASS COMPARISON: CT dated 06/08/2019, US dated 03/23/2019 TECHNIQUE: Real time medina scale ultrasound examination using curved array transducer. FINDINGS: Liver demonstrates heterogeneous echotexture and nodular contour consistent with cirrhosis. Multiple solid hepatic lesions are identified, including 4.2 cm mass in the superior right hepatic lobe, 3.8 cm mass in the inferior right hepatic lobe, and 3.7 cm mass in the medial left hepatic lobe. The main portal vein is dilated to 19 mm and a portosystemic collateral is identified. Small amount of perihepatic ascites noted. The gallbladder demonstrates few 5-6 mm presumed polyps without gallstones, wall thickening, or pericholecystic fluid. No biliary ductal dilatation is appreciated and the common bile duct measures 2.3 mm diameter. Right kidney is normal in reniform shape without hydronephrosis and measures 11.6 x 5.9 x 4.9 cm. IMPRESSION: 1. Evidence for cirrhosis with multiple hepatic mass lesions concerning for underlying neoplasm. Small amount of perihepatic ascites noted as well as a portosystemic shunt originating from the left portal vein. 2. Small presumed benign gallbladder polyps measure up to 6 mm. <Electronically signed by Ivan Miranda > 04/22/20 [id number]
== END ==
LOC: M RAD 06:59
PROVIDERS: ATTEND Physician Assistant
DX: K59.00 Constipation, unspecified (principal); Z86.010 Personal history of colon polyps; R13.10 Dysphagia, unspecified; K21.9 Gastro-esophageal reflux disease without esophagitis; K74.60 Unspecified cirrhosis of liver; I85.10 Secondary esophageal varices without bleeding; R16.0 Hepatomegaly, not elsewhere classified; E55.9 Vitamin D deficiency, unspecified; R18.8 Other ascites; K76.89 Other specified diseases of liver

== ENCOUNTER → 2020-05-04 | Outpatient (REF) | payer MEDICARE, BC ==
[2020-05-04 11:38] LABS: INR 1.24; PROTHROMBIN TIME 15.9 SECONDS (12.5-14.3)
[2020-05-04 11:39] LABS: PARTIAL THROMBOPLASTIN TIME 34.6 SECONDS (24.2-38.5)
== END ==
LOC: M LAB REF 11:22
PROVIDERS: ATTEND Family Medicine
DX: I85.00 Esophageal varices without bleeding (principal); Z86.010 Personal history of colon polyps

== ENCOUNTER 2020-08-10 09:47 | Outpatient (CLI) | payer MEDICARE, BC ==
[~2020-08-10 09:47] MED LIST changes: +D31000TA2 PO; +FERR325T3 PO; +MAGN64TASA PO
[2020-08-10 10:00] VITALS: BP 110/63
[2020-08-10] MEDS ORDERED: ACETAMINOPHEN TAB 650MG DOSE (2X325MG) PO ONE (10:30)
[2020-08-10] MEDS ORDERED: FUROSEMIDE 20MG/2ML VIAL (J1940) IV ONE (10:30)
[2020-08-10] MEDS ORDERED: diphenhydrAMINE 25MG CAP PO ONE (10:30)
== END 2020-08-10 11:00 | disposition home or self-care (01) ==
LOC: M INFU 09:47
PROVIDERS: ATTEND Internal Medicine Medical Oncology
DX: D75.89 Other specified diseases of blood and blood-forming organs (principal); Z91.041 Radiographic dye allergy status

== ENCOUNTER 2020-09-05 11:14 | Inpatient (IN) | payer MEDICARE, BC ==
[~2020-09-05] VITALS: Ht 188 cm; Wt 115.2 kg
[~2020-09-05 11:14] MED LIST changes: -OMEG1CAP4 PO; +OMEG1CAP85 PO
[2020-09-05 12:54] LABS: BASO % 0.2 % (0.0-1.0); EOS # 0.1 10^3/uL (0.0-0.5); EOS % 0.9 % (0.0-3.0); HEMATOCRIT 29.3 % (42.0-52.0); HEMOGLOBIN 9.3 g/dl (13.5-17.5); LYMPH # 0.5 10^3/uL (1.5-5.0); LYMPH % 8.8 % (24.0-44.0); MEAN CORPUSCULAR HEMOGLOBIN 30.3 pg (27.0-33.0); MEAN CORPUSCULAR HGB CONC 31.7 g/dl (32.0-36.5); MEAN CORPUSCULAR VOLUME 95.4 fl (80.0-96.0); MONO # 0.4 10^3/uL (0.0-0.8); MONO % 7.2 % (2.0-8.0); NEUTROPHILS # 4.6 10^3/uL (1.5-8.5); RED BLOOD COUNT 3.07 10^6/uL (4.30-6.10); WHITE BLOOD COUNT 5.6 10^3/uL (4.0-10.0)
--- NOTE | 2020-09-05 12:58 | REP ---
INDICATION: trauma COMPARISON: None. TECHNIQUE: Axial noncontrast images from the skull base to the thoracic inlet with coronal reformations. This CT examination was performed using the following dose reduction techniques: Automated exposure control, adjustment of mA and/or kv according to the patient's size, and use of iterative reconstruction technique. FINDINGS: Age-related atrophy and microvascular ischemic changes are appreciated. The ventricles and sulci are symmetric. Ledbetter-white differentiation is maintained. There is no evidence for acute intracranial hemorrhage, mass/mass effect, pathology or infarction. No extra-axial fluid collection. Calvarium is intact. Paranasal sinuses and mastoid air cells are clear. IMPRESSION: Age related atrophy and microvascular ischemic changes. No acute intracranial hemorrhage, infarction, or mass/mass effect. <Electronically signed by Ivan Miranda > 09/05/20 [id number]
--- NOTE | 2020-09-05 13:01 | REP ---
INDICATION: trauma. COMPARISON: None. TECHNIQUE: Axial noncontrast images of the thoracic spine with coronal and sagittal reformations. FINDINGS: Exaggerated kyphosis and bridging osteophytosis is again appreciated and essentially unchanged compared to sagittal images from chest CT dated 02/07/2019. There is no evidence for acute fracture/compression injury or subluxation. Spinal canal is patent. Posterior elements and spinous processes are intact. Paravertebral soft tissues are normal. IMPRESSION: Degenerative changes. No acute fracture/compression injury or subluxation. <Electronically signed by Ivan Miranda > 09/05/20 [id number]
[2020-09-05 13:02] LABS: PLATELET COUNT, AUTOMATED 88 10^3/uL (150-450)
--- NOTE | 2020-09-05 13:02 | REP ---
INDICATION: trauma COMPARISON: None. TECHNIQUE: Axial noncontrast images from the skull base to the thoracic inlet with coronal and sagittal re-formations This CT examination was performed using the following dose reduction techniques: Automated exposure control, adjustment of mA and/or kv according to the patient's size, and use of iterative reconstruction technique. FINDINGS: Exaggerated lordosis along with advanced multilevel degenerative changes including endplate sclerosis, disc space narrowing, osteophytosis, and facet arthropathy noted. Posterior elements and spinous processes are intact. Spinal canal is patent. Paravertebral soft tissues are normal. IMPRESSION: Advanced multilevel degenerative spondylosis. No evidence for acute pathology or trauma/injury. <Electronically signed by Ivan Mrianda > 09/05/20 [id number]
[2020-09-05 13:03] LABS: INR 1.61; PROTHROMBIN TIME 19.5 SECONDS (12.5-14.3)
--- NOTE | 2020-09-05 13:04 | REP ---
INDICATION: trauma. COMPARISON: None. TECHNIQUE: Axial noncontrast images of the lumbosacral spine from mid T11 through mid sacrum with coronal and sagittal reformations. This CT examination was performed using the following dose reduction techniques: Automated exposure control, adjustment of mA and/or kv according to the patient's size, and use of iterative reconstruction technique. FINDINGS: Alignment and lordosis maintained. Age-related osteopenia and early advanced multilevel degenerative changes include osteophytosis, endplate sclerosis, disc space narrowing, and small posterior disc bulges primarily at L3-4, L4-5, and L5-S1. Facet arthropathy noted. There is no evidence for acute fracture/compression injury or subluxation. Posterior elements and spinous processes are intact. Paravertebral soft tissues are normal. IMPRESSION: Early advanced multilevel degenerative spondylosis. No acute fracture/compression injury or subluxation. <Electronically signed by Ivan Miranda > 09/05/20 1300
--- NOTE | 2020-09-05 13:08 | REP ---
INDICATION: CHEST PAIN. COMPARISON: 02/07/2019. TECHNIQUE: SINGLE PORTABLE AP VIEW OF THE CHEST WAS PERFORMED. FINDINGS: There is mild cardiomegaly. There is mild chronic elevation of the left hemidiaphragm. No acute infiltrate is seen. Mediastinal silhouette is unchanged. Left pacemaker is again noted, not definitely changed. IMPRESSION: NO ACUTE PULMONARY DISEASE.Mild cardiomegaly. <Electronically signed by Titi Ledbetter > 09/05/20 [id number]
--- NOTE | 2020-09-05 13:08 | REP ---
INDICATION: trauma COMPARISON: 02/07/2019 TECHNIQUE: Axial noncontrast images from the thoracic inlet to the upper abdomen with coronal and sagittal reformations. This CT examination was performed using the following dose reduction techniques: Automated exposure control, adjustment of mA and/or kv according to the patient's size, and use of iterative reconstruction technique. FINDINGS: Minimal chronic bibasilar changes are appreciated along with very small pleural effusions and trace basilar atelectasis. Bullae are identified along the medial upper lobes. No consolidation/contusion. No pneumothorax. Tracheobronchial tree is patent. No adenopathy. The mediastinum demonstrates atherosclerotic changes to the thoracic aorta and coronary arteries without aortic aneurysm. Small stable pericardial effusion is again noted. Pacemaker in stable position. Musculoskeletal structures demonstrate old healed right rib fractures. No acute fracture identified. Limited upper abdomen demonstrates cirrhosis and ascites including portal hypertension, varices, and splenomegaly. IMPRESSION: 1. Very small pleural effusions and trace basilar atelectasis. 2. No further acute mediastinal or pleuroparenchymal process appreciated. 3. Visualized upper abdomen consistent with cirrhosis and portal hypertension. <Electronically signed by Ivan Miranda > 09/05/20 1654
--- NOTE | 2020-09-05 13:11 | REP ---
INDICATION: trauma COMPARISON: 06/08/2019, 02/07/2019 TECHNIQUE: Axial noncontrast images from the lung bases to the pubic symphysis with coronal and sagittal reformations. This CT examination was performed using the following dose reduction techniques: Automated exposure control, adjustment of mA and/or kv according to the patient's size, and use of iterative reconstruction technique. FINDINGS: Evidence for cirrhosis including hepatosplenomegaly, varices, portal hypertension, and mild/moderate ascites extending along the right pericolic gutter into the pelvis. Gallbladder demonstrates layering high density material suggesting sludge. Pancreas, bilateral adrenal glands and kidneys are relatively normal. The enteric system is without obstruction or acute inflammatory process. Diverticulosis noted without acute diverticulitis. Normal terminal ileum and appendix identified in the right lower quadrant. Pelvis demonstrates normal bladder and age-appropriate prostate/seminal vesicles. Small fat containing right inguinal hernia noted. Musculoskeletal structures demonstrate age-related osteopenia and degenerative changes without acute injury. IMPRESSION: Findings consistent with cirrhosis and portal hypertension No obvious acute abdominopelvic trauma/injury <Electronically signed by Ivan Miranda > 09/05/20 [id number]
[2020-09-05 13:26] LABS: ALBUMIN 2.6 GM/DL (3.2-5.2); ALT/SGPT 79 U/L (12-78); BILIRUBIN,DIRECT 2.6 MG/DL (0.0-0.2); BILIRUBIN,TOTAL 4.2 MG/DL (0.2-1.0); BLOOD UREA NITROGEN 35 MG/DL (7-18); CALCIUM LEVEL 10.5 MG/DL (8.8-10.2); CARBON DIOXIDE LEVEL 25 MEQ/L (21-32); CHLORIDE LEVEL 104 MEQ/L (98-107); CK-MB VALUE MASS < 1.0 NG/ML (<3.6); CPK CREATINE PHOSPHOKINASE 21 U/L (39-308); CREATININE FOR GFR 0.81 MG/DL (0.70-1.30); FREE T4 1.74 NG/DL (0.76-1.46); GLOMERULAR FILTRATION RATE > 60.0 (>42); GLUCOSE, FASTING 86 MG/DL (70-100); LIPASE 179 U/L (73-393); MB/CK RELATIVE INDEX 4.76 (< OR =4); NT-PRO BNP 488 PG/ML (<125); POTASSIUM SERUM 4.2 MEQ/L (3.5-5.1); SODIUM LEVEL 137 MEQ/L (136-145); THYROID STIMULATING HORMONE 0.728 uIU/ML (0.358-3.740); TOTAL PROTEIN 6.4 GM/DL (6.4-8.2); TROPONIN I < 0.02 NG/ML (< 0.10)
[2020-09-05] MEDS ORDERED: cefTRIAXone SOD 1 GM in D5W MINI-BAG PLUS 50 ML IV ONE (13:40)
--- NOTE | 2020-09-05 15:08 | REP ---
INDICATION: Elevated bilirubin COMPARISON: None. TECHNIQUE: Real time medina scale ultrasound examination using curved array transducer. FINDINGS: Liver is heterogeneous and enlarged with nodular contour consistent with cirrhosis. Two solid mass lesions in the right lobe measures 3.8 cm and 5.1 cm maximal diameter each but are otherwise limited in evaluation and nonspecific in appearance by ultrasound. The pancreas is incompletely evaluated due to interposed bowel gas. Gallbladder demonstrates layering sludge and presumed chronic wall thickening to 5.8 mm without pericholecystic fluid and without sonographic Be sign. The common bile duct is poorly evaluated and images suggest the CBD to measure roughly 5.6 mm diameter. Curvilinear echogenic structure measuring 17 mm with posterior shadowing in the right upper quadrant adjacent to the pancreas corresponds to chronic benign rim calcified structure identified on CT likely representing small lymph node and unchanged through examinations dating to 10/04/2017. IMPRESSION: 1. Findings consistent with cirrhosis as better described on recent CT. 2. Layering sludge in the gallbladder with chronic appearing wall thickening. <Electronically signed by Ivan Miranda > 09/05/20 [id number]
[2020-09-05] MEDS ORDERED: GLUCOSE 4GM CHEW TABLET PO PRN (15:30)
[2020-09-05] MEDS ORDERED: GLUCAGON INJ 1MG VIAL SC PRN (15:30)
[2020-09-05] MEDS ORDERED: DEXTROSE 50% 50 ML SYRINGE IV PRN (15:30)
[2020-09-05] MEDS ORDERED: NS 1,000 ML IV SCH (15:30)
[2020-09-05] MEDS ORDERED: ACETAMINOPHEN TAB 650MG DOSE (2X325MG) PO PRN (15:30)
[2020-09-05] MEDS ORDERED: MOM 30ML SUSPENSION UDC PO PRN (15:30)
--- NOTE | 2020-09-05 15:51 | HPEPDOC ---
[facility] Medical History & Physical Date of Admission Sep 05, 2020 Date of Service: Sep 05, 2020 History and Physical Chief complaint: Who presented to the emergency room with weakness and a fall at home History of present illness: Patient is a 70-year-old male who presented to the emergency room after he had fallen at home yesterday evening. He reports that hes been expe riencing weakness and had fallen last week Saturday. Patient reported that he was walking to his bathroom, lost balance had reported some lightheadedness. Denied any loss of consciousness or head trauma. Patient reported that he fell again yesterday. Again denied any head trauma or loss of consciousness. Upon evaluation of patient in the emergency room today. He denies any chest pain or palpitations. Reports that there is no change in his baseline shortness of breath or baseline cough. Patient denies any nausea, vomiting. Does report some abdominal discomfort described as a 1-2/10, patient denies any alleviating or aggravating factors, describes it as a dullness / ache. Patient reports his appetite has been poor and has experience a weight loss of approximately 5 pounds over 2 weeks. Patient does report constipation and his last bowel movement was 2 days ago. Denies any urinary discomfort, but does report dark colored urine. Has not experience any fevers or chills. 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 Review of Systems: 10 point review of systems complete, all negative otherwise stated in HPI Physical exam: - Vitals: BP [134/80], HR [60], RR [20], Sat [96%RA], Temp [98.5F] - General: Lying in bed, No acute distress, Speaking in full sentences, AAOx3 - HEENT: NC, AT, L pupil appears to be 1mm larger than R pupil - CVS: RRR, +S1S2 - Lungs: Fair air entry bilaterally, No appreciable wheezing / rales / rhonchi - Abdomen: Soft, Non-distended, Non-tender, Hepatomegaly - Extremities: No lower extremity edema, No calf tenderness - Neuro: No focal motor or sensory deficit - Skin: No visible rashes Labs: See below Imaging: CXR 3: NO ACUTE PULMONARY DISEASE.Mild cardiomegaly. CT head 3: Age related atrophy and microvascular ischemic changes. No acute intracranial hemorrhage, infarction, or mass/mass effect. CT cervical spine 3: Advanced multilevel degenerative spondylosis. No evidence for acute pathology or trauma/injury. CT thoracic spine 3: Degenerative changes. No acute fracture/compression injury or subluxation. CT lumbar spine 3: Early advanced multilevel degenerative spondylosis. No acute fracture/compression injury or subluxation. CT chest 3: 1. Very small pleural effusions and trace basilar atelectasis. 2. No further acute mediastinal or pleuroparenchymal process appreciated. 3. Visualized upper abdomen consistent with cirrhosis and portal hypertension. CT abdomen / pelvis 09/05: Findings consistent with cirrhosis and portal hypertension No obvious acute abdominopelvic trauma/injury US gallbladder 3: 1. Findings consistent with cirrhosis as better described on recent CT. 2. Layering sludge in the gallbladder with chronic appearing wall thickening. EKG: See below Assessment and Plan: Weakness / Debility - possibly 2/2 UTI and dehydration - Presented to the emergency room after he had fallen twice over the duration of 1 week - Patient denies any specific trauma - Denies any loss of consciousness - Imaging noted above - Will start PT and OT - Will start fall precautions Suspected UTI - Patient has reported that his urine has become dark with foul odor - Patient is afebrile and hemodynamically stable - UA abnormal - Will check blood cultures / urine cultures / procalcitonin - Will start Ceftriaxone and gentle IV fluid hydration Alcoholic Liver cirrhosis - No significant abdominal tenderness - Lab work reveals elevation of bilirubin and AST:ALT ~3:1 ratio - INR elevated / Albumin low - Several hepatitis panels in the past have been negative - Imaging reviewed above; no evidence of obstruction - Discussed with Dr. Vy Carter ([phone]); slight elevation can happen in setting of infection / dehydration Liver masses - Patient has had a prior liver mass that was biopsied and noted to be benign (10/2017) - Patient is currently in the process of having the second mass worked up by the director of cardiology, Dr. Vy Carter CAD s/p stent - Denies any CP - EKG reviewed - Troponin x 1 negative - c/w ASA A fib - s/p Ablation and PM / AICD (not on anticoagulation) Myelofibrosis (JAK2 positive) - Diagnosed on 10/2012 - Will continue with home medication, Ruxolitinib Pancytopenia - Hemoglobin appears to be slightly higher than baseline; possibly 2/2 dehydration - Recent platelet transfusions x2 on 08/09/20 - Platelet count appears to be stable compared to prior Massive splenomegaly - likely 2/2 cirrhosis MELANIE - Not on CPAP NIDDM2 - Will start ISS DLP - c/w ASA and [place] 3 fatty acids Hypothyroidism - c/w Levothyroxine Morbid obesity - Complicating medical care Gout - c/w Allopurinol Hx of Kidney stones 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 Anxiety - c/w Alprazolam PRN Vitamin D deficiency - c/w Supplementation Gastric ulcer - Patient reports that he recently had an EGD and colonoscopy completed 2 weeks ago - c/w Omeprazole DVT prophylaxis - Will start TEDs/Sequentials (re: Thrombocytopenia) Code status: - Discussed code status with patient; indicated full code at this time, but would think about it and talk with his Vital Signs Vital Signs Date Time Temp Pulse Resp B/P (MAP) Pulse Ox O2 Delivery O2 Flow Rate FiO2 09/05/20 13:49 60 116/71 (86) 59 105/64 (78) 80 165/106 (125) 09/05/20 11:36 98.5 20 96 Room Air Laboratory Data Labs 24H Laboratory Tests 2 09/05/20 12:20: Urine Color YELLOW, Urine Appearance CLOUDYH, Urine pH 6.0, Urine Specific [place] 1.011, Urine Protein 2+H, Urine Glucose (UA) NEGATIVE, Urine Ketones NEGATIVE, Urine Blood 1+H, Urine Nitrite NEGATIVE, Urine Bilirubin NEGATIVE, Urine Urobilinogen 0.2, Urine Leukocyte Esterase 3+H, Urine WBC (Auto) TNTCH, Urine RBC (Auto) 14H, Urine Hyaline Casts (Auto) 0, Urine Bacteria (Auto) 1+H, Urine Squamous Epithelial Cells 1, Urine Sperm (Auto) 09/05/20 12:26: Immature Granulocyte % (Auto) 0.9, Neutrophils (%) (Auto) 82.0H, Lymphocytes (%) (Auto) 8.8L, Monocytes (%) (Auto) 7.2, Eosinophils (%) (Auto) 0.9, Basophils (%) (Auto) 0.2, Neutrophils # (Auto) 4.6, Lymphocytes # (Auto) 0.5L, Monocytes # (Auto) 0.4, Eosinophils # (Auto) 0.1, Basophils # (Auto) 0.0, Nucleated Red Blood Cells % (auto) 0.9H, Immature Platelet Fraction 4.7, Prothrombin Time 19.5H, Prothromb Time International Ratio 1.61, Activated Partial Thromboplast Time 40.0H, Anion Gap 8, Glomerular Filtration Rate > 60.0, Calcium Level 10.5H, Magnesium Level 2.0, Total Bilirubin 4.2H, Direct Bilirubin 2.6H, Aspartate Amino Transf (AST/SGOT) 204H, Alanine Aminotransferase (ALT/SGPT) 79H, Alkaline Phosphatase 100, Total Creatine Kinase 21L, Creatine Kinase MB < 1.0, Creatine Kinase MB Relative Index 4.76H, Troponin I < 0.02, FQ-Khd-C-Type Natriuretic Peptide 488H, Total Protein 6.4, Albumin 2.6L, Albumin/Globulin Ratio 0.7, Lipase 179, Thyroid Stimulating Hormone (TSH) 0.728, Free Thyroxine 1.74H CBC/BMP Laboratory Tests 09/05/20 12:26 Microbiology Microbiology 09/05/20 Respiratory Virus Panel (PCR) (LUIS M) - Final, Complete 09/05/20 Blood Culture, Received Pending 09/05/20 Blood Culture, Received Pending 09/05/20 Urine Culture, Received Pending Home Medications Scheduled Allopurinol (Zyloprim) 300 Mg Tab, 300 MG PO DAILY Alprazolam (Alprazolam) 0.5 Mg Tablet, 0.5 MG PO QHS Aspirin (Aspirin EC) 81 Mg Tab, 81 MG PO DAILY Cholecalciferol (Vitamin D3) (Vitamin D3) 1,000 Unit Tablet, 2,000 UNITS PO DAILY Docusate Sodium (Colace) 100 Mg Cap, 100 MG PO DAILY Levothyroxine Sodium (Levothyroxine Sodium) 112 Mcg Tablet, 112 MCG PO DAILY Magnesium Chloride (Mag64) 64 Mg Tablet.dr, 64 MG PO BID Metformin HCl (Metformin HCl) 1,000 Mg Tab, 1,000 MG PO DAILY Metoprolol Succinate (Metoprolol Succinate) 100 Mg Tab.er.24h, 100 MG PO QPM Multivitamins (Thera M Plus Tablet) 1 Tab Tab, 1 TAB PO DAILY [place]-3 Acid Ethyl Esters ([place]-3 Acid Ethyl Esters) 1 Cap Cap, 2 GM PO BID Omeprazole (Omeprazole) 20 Mg Cap, 20 MG PO DAILY Ruxolitinib Phosphate (Jakafi) 10 Mg Tablet, 10 MG PO BID Vitamin E (Dl,Tocopheryl Acet) (Vitamin E) 400 Unit Capsule, 400 UNIT PO DAILY Allergies Coded Allergies: Contrast Media (Verified Allergy, Intermediate, HIVES, 02/07/19) SHERIDAN SOLANO MD Sep 05, 2020 15:51
[2020-09-05] MEDS: HumaLOG INSULIN (NovoLOG) PER UNIT SC SCH (17:30)
[2020-09-05 18:00] VITALS: BP 128/88
--- NOTE | 2020-09-05 19:33 | ECGEPIP ---
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
[2020-09-05 20:00] VITALS: BP 118/65
[2020-09-05] MEDS: MAGNESIUM OXIDE 400MG TAB (MAG-OX) PO SCH ×2 (21:00→21:07)
[2020-09-05] MEDS ORDERED: ALPRAZolam 0.5 MG TAB PO SCH (21:00)
[2020-09-05] MEDS ORDERED: METOPROLOL SUCC (TopROL XL) 100MG *XL* TAB PO SCH (21:00)
[2020-09-05] MEDS: OMEGA-3 1000MG CAPSULE PO SCH (21:00)
[2020-09-05] MEDS ORDERED: HumaLOG INSULIN (NovoLOG) PER UNIT SC SCH (21:00)
[2020-09-05 21:08] VITALS: BP 118/65
[2020-09-05] MEDS: DOCUSATE SODIUM 100MG CAPSULE PO SCH (21:08)
[2020-09-05] MEDS: RUXOLITINIB 10 MG PO SCH (23:12)
[2020-09-06] VITALS (16 sets, daily range): BP systolic 96–122; BP diastolic 60–80
[2020-09-06 05:17] LABS: HEMATOCRIT 30.6 % (42.0-52.0); HEMOGLOBIN 9.4 g/dl (13.5-17.5); MEAN CORPUSCULAR HEMOGLOBIN 29.4 pg (27.0-33.0); MEAN CORPUSCULAR HGB CONC 30.7 g/dl (32.0-36.5); MEAN CORPUSCULAR VOLUME 95.6 fl (80.0-96.0); PLATELET COUNT, AUTOMATED 108 10^3/uL (150-450); WHITE BLOOD COUNT 6.6 10^3/uL (4.0-10.0)
[2020-09-06 05:37] LABS: ALBUMIN 2.5 GM/DL (3.2-5.2); ALT/SGPT 88 U/L (12-78); BILIRUBIN,TOTAL 4.7 MG/DL (0.2-1.0); BLOOD UREA NITROGEN 38 MG/DL (7-18); CALCIUM LEVEL 10.3 MG/DL (8.8-10.2); CARBON DIOXIDE LEVEL 24 MEQ/L (21-32); CHLORIDE LEVEL 105 MEQ/L (98-107); CREATININE FOR GFR 0.84 MG/DL (0.70-1.30); GLOMERULAR FILTRATION RATE > 60.0 (>42); GLUCOSE, FASTING 86 MG/DL (70-100); POTASSIUM SERUM 4.6 MEQ/L (3.5-5.1); SODIUM LEVEL 138 MEQ/L (136-145); TOTAL PROTEIN 6.3 GM/DL (6.4-8.2)
[2020-09-06 05:38] LABS: ANISOCYTOSIS 2+; BASOPHILS 1 % (0-1); EOSINOPHILS 3 % (0-3); LYMPHOCYTES 7 % (16-44); METAMYELOCYTES 2 % (0-0); MONOCYTES 6 % (0-5); NEUTROPHILS 70 % (28-66); PLATELET ESTIMATE NORMAL (NORMAL)
[2020-09-06 05:39] LABS: OVALOCYTES 1+; POLYCHROMASIA 1+; TEAR DROP CELLS 1+
[2020-09-06 05:40] LABS: GIANT PLATELETS 1+
[2020-09-06] MEDS ORDERED: LEVOTHYROXINE 112MCG TABLET (0.112MG) PO SCH (06:00)
[2020-09-06] MEDS: HumaLOG INSULIN (NovoLOG) PER UNIT SC SCH ×3 (07:30→17:30)
[2020-09-06] MEDS ORDERED: OMEPRAZOLE 20 MG CAP PO SCH (09:00)
[2020-09-06] MEDS ORDERED: VITAMIN E 400 INTERNATIONAL UNITS CAP PO SCH (09:00)
[2020-09-06] MEDS ORDERED: MULTIVITAMINS/MINERALS THERAP 1 TAB PO SCH (09:00)
[2020-09-06] MEDS ORDERED: VITAMIN D 1,000 INTERNATIONAL UNITS TABLET PO SCH (09:00)
[2020-09-06] MEDS ORDERED: allopurinoL 300 MG TAB PO SCH (09:00)
[2020-09-06] MEDS ORDERED: ASPIRIN 81 MG ENTERIC TAB PO SCH (09:00)
[2020-09-06 09:21] LABS: C REACTIVE PROTEIN QUANTITATIV 5.78 MG/DL (0.00-0.30)
[2020-09-06] MEDS ORDERED: VANCOMYCIN HCL 1,000 MG, VIAL MATE ADAPTER 1 EACH in NS 250 ML IV SCH ×2 (09:40→20:00)
[2020-09-06 09:52] LABS: HEPATITIS B SURFACE ANTIGEN NEGATIVE (NEGATIVE)
[2020-09-06] MEDS ORDERED: NS 500 ML IV ONE (10:00)
[2020-09-06] MEDS: MAGNESIUM OXIDE 400MG TAB (MAG-OX) PO SCH (10:07)
[2020-09-06] MEDS: OMEGA-3 1000MG CAPSULE PO SCH (10:07)
[2020-09-06] MEDS: DOCUSATE SODIUM 100MG CAPSULE PO SCH (10:07)
[2020-09-06] MEDS: RUXOLITINIB 10 MG PO SCH (10:08)
[2020-09-06 10:12] LABS: HEPATITIS C VIRUS ABY INDEX < 0.0 INDEX (<0.8)
[2020-09-06 10:13] LABS: HEPATITIS B CORE ANTIBODY IGM NEGATIVE (NEGATIVE)
[2020-09-06 10:15] LABS: HEPATITIS A ANTIBODY IGM NEGATIVE (NEGATIVE)
[2020-09-06] MEDS ORDERED: SODIUM BICARBONATE 8.4% INJ 50MEQ 50 ML VIAL As Ordered ONE (10:43)
[2020-09-06] MEDS ORDERED: LIDOCAINE 1% MDV 20ML VIAL As Ordered ONE (10:44)
[2020-09-06] MEDS: PIPERACILLIN/TAZOBACTAM SOD 3.375 GM in D5W MINI-BAG PLUS 50 ML IV SCH ×2 (10:48→16:51)
[2020-09-06] MEDS: NS 1,000 ML IV SCH ×2 (11:12→18:03)
[2020-09-06 11:14] LABS: LDH LACTATE DEHYDROGENASE 372 U/L (87-241)
[2020-09-06] MEDS ORDERED: VANCOMYCIN HCL 1,000 MG, VIAL MATE ADAPTER 1 EACH in NS 250 ML IV ONE ×2 (12:00→13:00)
[2020-09-06 12:38] LABS: SOURCE, BODY FLUID ALBUMIN PERITONEAL
--- NOTE | 2020-09-06 12:41 | REP ---
INDICATION: Ascites COMPARISON: None. TECHNIQUE: The procedure was performed by RIAN George, under the direct supervision of Dr. Ledbetter The risks and benefits of the procedure were explained to the patient and an informed consent was obtained both verbally and written. Directly prior to the start of the procedure a formal time-out was completed in the procedure room. The largest pocket of fluid was localized in the left flank using ultrasound guidance. The skin was prepped and draped in a sterile fashion. Eleven ML of buffered lidocaine was used as a local anesthetic. An 8-[place] multi side-hole catheter was inserted using trocar technique. FINDINGS: 1200 mL of red colored ascites was removed and sent to the laboratory for further analysis. The patient tolerated the procedure well and there were no immediate complications. After the appropriate amount of monitored convalescence, the patient was discharged from the department. IMPRESSION: Ultrasound-guided paracentesis with removal of 1200 mL of red-colored ascites. <Electronically signed by Elsa Flores > 09/06/20 [id number] <Electronically signed by Titi Ledbetter > 09/06/20 1238
[2020-09-06 12:44] LABS: SOURCE, BODY FLUID GLUCOSE PERITONEAL; SOURCE, BODY FLUID TOT PROTEIN PERITONEAL; TOTAL PROTEIN, BODY FLUID 2.4 G/DL (NOT ESTABLISHED)
[2020-09-06 13:01] LABS: SPEC. GRAVITY BODY FLUIDS 1.018 (NOT ESTABLISHED)
[2020-09-06 13:20] LABS: APPEARANCE, BODY FLUID CLOUDY (CLEAR); PERITONEAL FL COLOR ORANGE (COLORLESS); SOURCE, BODY FLUID PERITONEAL
[2020-09-06] MEDS ORDERED: NS 1,000 ML IV ONE ×3 (14:10→14:35)
[2020-09-06 16:36] LABS: ALBUMIN 2.1 GM/DL (3.2-5.2); ALT/SGPT 88 U/L (12-78); BILIRUBIN,TOTAL 4.3 MG/DL (0.2-1.0); BLOOD UREA NITROGEN 36 MG/DL (7-18); CALCIUM LEVEL 9.4 MG/DL (8.8-10.2); CARBON DIOXIDE LEVEL 23 MEQ/L (21-32); CHLORIDE LEVEL 110 MEQ/L (98-107); CREATININE FOR GFR 0.69 MG/DL (0.70-1.30); ETHYL ALCOHOL (ETHANOL) < 0.003 % (0.000-0.010); GLOMERULAR FILTRATION RATE > 60.0 (>42); GLUCOSE, FASTING 94 MG/DL (70-100); POTASSIUM SERUM 4.1 MEQ/L (3.5-5.1); SODIUM LEVEL 141 MEQ/L (136-145); TOTAL PROTEIN 5.4 GM/DL (6.4-8.2)
--- NOTE | 2020-09-06 16:41 | IPNPDOC ---
Text Note Date of Service The patient was seen on 09/06/20. VS,Mohamudbone, I+O VS, Fishbone, I+O Laboratory Tests 09/06/20 04:35 Vital Signs Date Time Temp Pulse Resp B/P (MAP) Pulse Ox O2 Delivery O2 Flow Rate FiO2 09/06/20 11:58 72 16 98 Room Air 09/06/20 11:09 96.6 09/06/20 10:45 107/68 (81) l I&O- Last 24 Hours up to 6 AM 09/06/20 06:00 Intake Total 690 ml Output Total 320 ml Balance 370 ml SHERIDAN SOLANO MD Sep 06, 2020 16:15
[2020-09-06] MEDS ORDERED: VANC1PIG IV (17:45)
[2020-09-06] MEDS ORDERED: ZOSY1SOL5 IV (17:45)
[2020-09-06] MEDS ORDERED: cefTRIAXone SOD 1 GM in D5W MINI-BAG PLUS 50 ML IV SCH (18:00)
--- NOTE | 2020-09-06 18:05 | DS.PDOC ---
Discharge Summary General Date of Admission Sep 05, 2020 at 15:26 Date of Discharge 09/06/2020 Discharge Summary PROCEDURES PERFORMED DURING STAY: [None]. 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 He reports that hes been experiencing weakness and had fallen last week Saturday. Patient reported that he was walking to his bathroom, lost balance had reported some lightheadedness. Denied any loss of consciousness or head trauma. Patient reported that he fell again yesterday. Again denied any head trauma or loss of consciousness. Patient was admitted to the hospital service for further evaluation and treatment. Patient was seen and examined at the bedside. Currently patient denies any nausea, vomiting, chest pain, shortness breath or palpitations. Denies any abdominal pain today. Has not experience any diarrhea. Denies any urinary discomfort. HOSPITAL COURSE: Weakness / Debility - possibly 2/2 dehydration; possibly 2/2 sepsis - Presented to the ER after he had fallen twice over the duration of 1 week - Patient denies any specific trauma - Denies any loss of consciousness - Imaging noted above - c/w PT and OT / Fall precautions Lactic acidosis - Possibly 2/2 liver disfunction, possibly 2/2 infection - See below - c/w IV fluid hydration Suspected infection; possibly 2/2 UTI, possibly 2/2 intra-abdominal source - Reported that his urine has become dark with foul odor - Patient is afebrile and hemodynamically stable - UA abnormal - PCT elevated - Blood cultures 3/1: Negative at 24 hours - Urine cultures 3/: Pending - MRSA screen negative - Paracentesis performed with WBC noted; but not significantly elevated - removed 1200 cc of fluid - Coverage was increased to Vancomycin and Zosyn (Day#1) this morning; s/p Ceftriaxone Alcoholic Liver cirrhosis - No significant abdominal tenderness - Lab work reveals elevation of bilirubin and AST:ALT ~3:1 ratio; suggesting alcoholic hepatitis or cirrhosis - INR elevated / Albumin low - Hepatitis panel negative currently - Imaging reviewed above; MRCP to evaluate for possible obstruction - unable to be completed - Will continue to trend liver function - GI not available for consultation - will have transfer for Gastroenterology consultation / possible intervention if obstructive etiology identified Liver masses - Patient has had a prior liver mass that was biopsied and noted to be benign (10/2017) - Patient is currently in the process of having the second mass worked up 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 Vy Carter CAD s/p stent - Denies any CP - EKG reviewed - Troponin x 1 negative - c/w ASA A fib - s/p Ablation and PM / AICD (not on anticoagulation) Myelofibrosis (JAK2 positive) - Diagnosed on 10/2012 - c/w Ruxolitinib (from home medications) History of Pancytopenia - Hemoglobin appears to be slightly higher than baseline; possibly 2/2 dehydration - Recent platelet transfusions x2 on 08/09/20 - Platelet count appears to be stable compared to prior Massive splenomegaly - likely 2/2 cirrhosis MELANIE - Not on CPAP NIDDM2 - c/w ISS DLP - c/w ASA and [place] 3 fatty acids Hypothyroidism - Thyroid function noted - c/w Levothyroxine Morbid obesity - BMI of 32.6 - Complicating medical care Gout - c/w Allopurinol Hx of Kidney stones 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 ALLERGIES: Please see below. PHYSICAL EXAMINATION ON DISCHARGE: Vitals (See below) General: Lying in bed, appears comfortable, AAOx3 HEENT: NC, AT CVS: +S1S2 Lungs: Fair air entry b/l, no appreciable wheezing / rhonchi / rales Abdomen: Soft, ND, NT, Obese, Hepatomegaly Extremities: +Trace edema, - Calf tenderness LABORATORY DATA: Please see below. IMAGING: CXR 09/05: NO ACUTE PULMONARY DISEASE.Mild cardiomegaly. CT head 09/05: Age related atrophy and microvascular ischemic changes. No acute intracranial hemorrhage, infarction, or mass/mass effect. CT cervical spine 09/05: Advanced multilevel degenerative spondylosis. No evidence for acute pathology or trauma/injury. CT thoracic spine 09/05: Degenerative changes. No acute fracture/compression injury or subluxation. CT lumbar spine 09/05: Early advanced multilevel degenerative spondylosis. No acute fracture/compress ion injury or subluxation. CT chest 09/05: 1. Very small pleural effusions and trace basilar atelectasis. 2. No further acute mediastinal or pleuroparenchymal process appreciated. 3. Visualized upper abdomen consistent with cirrhosis and portal hypertension. CT abdomen / pelvis 09/05: Findings consistent with cirrhosis and portal hypertension No obvious acute abdominopelvic trauma/injury US gallbladder 09/05: 1. Findings consistent with cirrhosis as better described on recent CT. 2. Layering sludge in the gallbladder with chronic appearing wall thickening. ACTIVITY: [As tolerated]. DISCHARGE PLAN: Transfer to [facility] Follow up with GI on transfer Remain compliant with treatment plan and medications Return to the ER if you experience any problems. DISPOSITION: Transfer to [facility] DISCHARGE CONDITION: [Stable]. TIME SPENT ON DISCHARGE: 35 minutes. Vital Signs/I&Os Vital Signs Date Time Temp Pulse Resp B/P (MAP) Pulse Ox O2 Delivery O2 Flow Rate FiO2 09/06/20 17:00 76 100/76 (84) 09/06/20 16:00 96.7 16 99 Room Air I&O- Last 24 Hours up to 6 AM 09/06/20 06:00 Intake Total 690 ml Output Total 320 ml Balance 370 ml Laboratory Data Labs 24H Laboratory Tests 2 09/05/20 18:04: Bedside Glucose (Misc Panel) 78L 09/05/20 20:07: Bedside Glucose (Misc Panel) 81L 09/06/20 04:35: Neutrophils (%) (Auto) , Reticulocyte # (auto) 126.8H, Nucleated Red Blood Cells % (auto) 0.9H, Neutrophils 70H, Band Neutrophils 11, Lymphocytes (Manual) 7L, Monocytes (Manual) 6H, Eosinophils (Manual) 3, Basophils (Manual) 1, Metamyelocytes 2H, Polychromasia 1+, Anisocytosis 2+, Tear Drop Cells 1+, Ovalocytes 1+, Giant Platelets 1+, Platelet Estimate NORMAL, Percent Reticulocyte Count 4.0H, Reticulocyte Hemoglobin Equivalent 37.0H, Anion Gap 9, Glomerular Filtration Rate > 60.0, Calcium Level 10.3H, Magnesium Level 2.0, Total Bilirubin 4.7H, Aspartate Amino Transf (AST/SGOT) 226H, Alanine Aminotransferase (ALT/SGPT) 88H, Alkaline Phosphatase 100, Total Protein 6.3L, Albumin 2.5L, Albumin/Globulin Ratio 0.7 09/06/20 08:35: Lactic Acid Level 4.9*H, Gamma Glutamyl Transferase 131H, Lactate Dehydrogenase 372H, C-Reactive Protein, Quantitative 5.78H, Procalcitonin 0.52, Hepatitis A IgM Antibody NEGATIVE, Hepatitis B Surface Antigen NEGATIVE, Hepatitis B Core IgM Antibody NEGATIVE, Hepatitis C Antibody Index < 0.0 09/06/20 10:11: Bedside Glucose (Misc Panel) 109 09/06/20 10:30: Methicillin-Resist S.aureus DNA PCR NOT DETECTED 09/06/20 11:00: Body Fluid Specific [place] 1.018, Body Fluid WBC (Auto) 187H, Body Fluid RBC (Auto) 21, Body Fluid Mononuclear Cells % Auto 74.9H, Fluid Polymorphonuclear Cell % Auto 25.1H, Body Fluid Glucose Source PERITONEAL, Body Fluid Glucose 114, Body Fluid Protein Source PERITONEAL, Body Fluid Total Protein 2.4, Body Fluid Albumin Source PERITONEAL, Body Fluid Albumin 1.3, Peritoneal Fluid Source PERITONEAL, Peritoneal Fluid Color ORANGE, Peritoneal Fluid Appearance CLOUDY 09/06/20 12:44: Bedside Glucose (Misc Panel) 91 09/06/20 13:16: Lactic Acid Followup at 4 Hours 5.7*H 09/06/20 15:50: Anion Gap 8, Glomerular Filtration Rate > 60.0, Lactic Acid Level 5.3*H, Calcium Level 9.4, Total Bilirubin 4.3H, Aspartate Amino Transf (AST/SGOT) 221H, Alanine Aminotransferase (ALT/SGPT) 88H, Alkaline Phosphatase 84, Total Protein 5.4L, Albumin 2.1L, Albumin/Globulin Ratio 0.6, Ethyl Alcohol Level < 0.003 09/06/20 17:33: Bedside Glucose (Misc Panel) 92 CBC/BMP Laboratory Tests 09/06/20 04:35 09/06/20 15:50 FSBS Laboratory Tests Test 3/1/21 18:04 09/05/20 20:07 09/06/20 10:11 09/06/20 12:44 Range/Units Bedside Glucose (Misc Panel) 78 81 109 91 83-110 MG/DL Test 09/06/20 17:33 Range/Units Bedside Glucose (Misc Panel) 92 83-110 MG/DL Microbiology Microbiology 09/06/20 Acid Fast Stain, Received Pending 09/06/20 Mycobacterial Culture, Received Pending 09/06/20 Fungal Smear, Received Pending 09/06/20 Fungal Culture, Received Pending 09/06/20 Gram Stain - Final, Resulted 09/06/20 Body Fluid Culture, Resulted Pending 09/06/20 Anaerobic Culture, Resulted Pending 09/05/20 Respiratory Virus Panel (PCR) (LUIS M) - Final, Complete 09/05/20 Blood Culture - Preliminary, Resulted No growth after 24 hours . All specim... 09/05/20 Blood Culture - Preliminary, Resulted No growth after 24 hours . All specim... 09/05/20 Urine Culture - Final, Complete Discharge Medications Scheduled Allopurinol (Zyloprim) 300 Mg Tab, 300 MG PO DAILY, (Reported) Alprazolam (Alprazolam) 0.5 Mg Tablet, 0.5 MG PO QHS, (Reported) Aspirin (Aspirin EC) 81 Mg Tab, 81 MG PO DAILY, (Reported) Cholecalciferol (Vitamin D3) (Vitamin D3) 1,000 Unit Tablet, 2,000 UNITS PO DAILY, (Reported) Docusate Sodium (Colace) 100 Mg Cap, 100 MG PO DAILY, (Reported) Levothyroxine Sodium (Levothyroxine Sodium) 112 Mcg Tablet, 112 MCG PO DAILY, (Reported) Magnesium Chloride (Mag64) 64 Mg Tablet.dr, 64 MG PO BID, (Reported) Metformin HCl (Metformin HCl) 1,000 Mg Tab, 1,000 MG PO DAILY, (Reported) Metoprolol Succinate (Metoprolol Succinate) 100 Mg Tab.er.24h, 100 MG PO QPM, (Reported) Multivitamins (Thera M Plus Tablet) 1 Tab Tab, 1 TAB PO DAILY, (Reported) [place]-3 Acid Ethyl Esters ([place]-3 Acid Ethyl Esters) 1 Cap Cap, 2 GM PO BID, (Reported) Omeprazole (Omeprazole) 20 Mg Cap, 20 MG PO DAILY, (Reported) Qtuhoybsanqk-Cdng-Zhxcoxsz,Iso (Zosyn 3.375 gm/50 ml Galaxy) 3.375 Gm/50 Ml Froz.piggy, 1 JAZ IV Q6H Ruxolitinib Phosphate (Jakafi) 10 Mg Tablet, 10 MG PO BID, (Reported) Vancomycin/Water For Inj (Peg) (Vancomycin 1 Gram/200 ml Bag) 1 Gm/200 Ml Piggyback, 1 GM IV Q12H Vitamin E (Dl,Tocopheryl Acet) (Vitamin E) 400 Unit Capsule, 400 UNIT PO DAILY, (Reported) Allergies Coded Allergies: Contrast Media (Verified Allergy, Intermediate, HIVES, 02/07/19) SHERIDAN SOLANO MD Sep 06, 2020 18:05
== END 2020-09-06 19:55 | disposition short-term general hospital (02) | DRG 433 ==
LOC: M ED 11:14 → M ED INP 15:26 → M PCU 17:46
PROVIDERS: ADMIT Internal Medicine; ATTEND Internal Medicine
PROC: 0W9G3ZZ Drainage of Peritoneal Cavity, Percutaneous Approach (ICD-10-PCS; principal; 2020-09-06 10:42)
DX: K70.31 Alcoholic cirrhosis of liver with ascites (principal); D61.818 Other pancytopenia; E87.2 Acidosis; N39.0 Urinary tract infection, site not specified; K76.6 Portal hypertension; I25.10 Atherosclerotic heart disease of native coronary artery without angina pectoris; G47.33 Obstructive sleep apnea (adult) (pediatric); R16.1 Splenomegaly, not elsewhere classified; E11.9 Type 2 diabetes mellitus without complications; E78.2 Mixed hyperlipidemia; E03.9 Hypothyroidism, unspecified; E66.01 Morbid (severe) obesity due to excess calories; M10.9 Gout, unspecified; K25.9 Gastric ulcer, unspecified as acute or chronic, without hemorrhage or perforation; Z87.891 Personal history of nicotine dependence; E86.0 Dehydration; K76.89 Other specified diseases of liver; I48.91 Unspecified atrial fibrillation; E55.9 Vitamin D deficiency, unspecified; Z79.82 Long term (current) use of aspirin; Z79.899 Other long term (current) drug therapy; Z91.041 Radiographic dye allergy status; Z68.32 Body mass index [BMI] 32.0-32.9, adult